=== PATIENT | male | born 1980 | race Caucasian/White ===

== ENCOUNTER 2022-10-13 08:01 | Inpatient (IN) | payer MEDICARE, OTHER, SELFPAY ==
--- NOTE | ~2022-10-13 | CT_ITS ---
EXAMINATION: CT HEAD WITHOUT CONTRAST CLINICAL INFORMATION: AMS. COMPARISON: None TECHNIQUE: Contiguous axial imaging was performed from the skull base to vertex without intravenous administration of contrast. This CT examination was performed using dose optimization techniques as appropriate, variously including the following: *Automated exposure control *Adjustment of mA and/or kV according to patient size (this includes techniques or standardized protocols for targeted exams where dose is matched to indication/reason for exam; i.e. extremities or head) *Use of iterative reconstruction technique DLP: 724 mGy-cm FINDINGS: There is no acute intra-axial, extra-axial bleed, masses or midline shift. There is no acute infarction evolution. The lateral ventricles are symmetrical but moderately enlarged. The pink to white matter differentiation is maintained normal. Incidental finding of a small arachnoid cyst right middle cranial fossa is suspected. Bone windows reveal no calvarial abnormality. There is mild mucoperiosteal thickening bilateral ethmoid and right frontal sinuses. Rest of the sinuses and mastoid air cells are clear. CT/CT head/brain wo IV con IMPRESSION: 1. No acute intracranial process seen. 2. Moderate cerebral volume loss. 3. Chronic bilateral ethmoid and right frontal sinus inflammatory changes.
--- NOTE | ~2022-10-13 | XR_ITS ---
EXAMINATION: XR CHEST CLINICAL INFORMATION: Altered mental status. COMPARISON: None TECHNIQUE: 2 views of the chest were obtained. FINDINGS: No significant abnormality is noted involving the heart, lungs, mediastinum, bony thorax or soft tissues. XR/XR chest 2V IMPRESSION: No acute cardiopulmonary process.
[2022-10-13 08:11] VITALS: BP 116/77; BP 158/86; PULSE 65; PULSE 76; RESP 18; TEMP 37; O2SAT 98; BMI 27.5
--- NOTE | 2022-10-13 08:24 | ECG_ITS ---
Test Reason : Dysphagia Blood Pressure : / mmHG Vent. Rate : 064 BPM Atrial Rate : 064 BPM P-R Int : 158 ms QRS Dur : 080 ms QT Int : 402 ms P-R-T Axes : 006 019 028 degrees QTc Int : 414 ms Normal sinus rhythm Normal ECG No previous ECGs available Referred By: Nancy Henry Electronically Signed By:TERESA AL MD
--- NOTE | 2022-10-13 08:24 | ED.GENADULT ---
HPI - General Adult General Chief complaint: Psychiatric Symptoms Stated complaint: ALTERED,CALM/COOP FOUND @ [facility] PER EMS Time Seen by Provider: 10/13/22 08:14 Source: patient and EMS Mode of arrival: EMS Limitations: no limitations History of Present Illness HPI narrative: Patient is a 42 year old assigned male at with a history of multiple psychiatric issues presenting to the emergency department today with auditory hallucinations. Patient states that he has been hearing more voices than usual. Patient denies any thoughts of hurting himself or others. Patient denies any dizziness, lightheadedness, abdominal pain, nausea, vomiting, fever, chills, blurry vision, double vision, loss of vision, chest pain, difficulty breathing, shortness of breath, back pain, night sweats, pain with urination, increased urinary frequency, increased urinary urgency, blood in his urine or stool, syncope or a near syncopal episode, recent trauma or falls, bowel incontinence, bladder incontinence, bowel retention, bladder retention, or any other complaints at this time. Onset (ago): day(s) Severity: mild Severity scale (1-10): 3 Relieving factors: none Exacerbating factors: none Associated symptoms: denies other symptoms Treatments prior to arrival: none Related Data Allergies Allergy/AdvReac Type Severity Reaction Status Date / Time Unable to Assess Allergy Verified 10/13/22 08:24 Review of Systems Constitutional: Constitutional: Reports no additional constitutional complaints, Denies chills, Denies fever(s) and Denies night sweats Eyes: Eyes: Reports no additional eye complaints, Denies blurry vision, Denies change in vision, Denies diplopia, Denies eye discharge, Denies loss of vision and Denies eye pain ENT: Denies dizziness Cardiovascular: Cardiovascular: Reports no additional cardiovascular complaints, Denies chest pain, Denies lightheadedness, Denies Loss of Consciousness and Denies dyspnea Respiratory: Respiratory: Reports no additional respiratory complaints and Denies dyspnea Gastrointestinal: Gastrointestinal: Reports no additional gastrointestinal complaints, Denies abdominal pain, Denies melena, Denies hematochezia, Denies change in bowel habits and Denies change in stool character Genitourinary: Genitourinary: Reports no additional male genitourinary complaints, Denies hematuria, Denies oliguria, Denies difficulty urinating, Denies dysuria, Denies urinary frequency, Denies urinary hesitancy, Denies urinary incontinence and Denies urinary urgency Musculoskeletal: Musculoskeletal: Reports no additional musculoskeletal complaints, Denies numbness and Denies tingling Neurologic: Denies dizziness, Denies loss of vision, Denies numbness and Denies tingling Psychiatric: Psychiatric: Reports no additional psychiatric complaints, Reports auditory hallucinations, Denies homicidal ideation and Denies suicidal ideation Endocrine: Endocrine: Reports no additional endocrine complaints Hematologic/Lymphatic: Hematologic/Lymphatic: Reports no additional hematologic/lymphatic complaints Allergic/Immunologic: Allergic/Immunologic: Reports no additional allergic/immunologic complaints PMFSH Past Medical History Attestation statement: The following information was validated with the patient. Source: old records reviewed Social History Social History Advance Directives: No Advance Directives Information Provided: No Physical Exam ED Vital Signs: Vital Signs - 24 hr 10/13/22 08:11 10/13/22 10:05 10/13/22 12:19 Temperature 98.6 F 99.1 F 98.5 F Pulse Rate 65 63 72 Respiratory Rate 18 15 12 Blood Pressure 116/77 104/77 104/66 Pulse Oximetry 98 99 100 Oxygen Delivery Method Room Air Room Air Room Air BMI result Body Mass Index 27.5 Const General: cooperative, no acute distress, alert and awake Nutritional Appearance: well nourished Orientation/consciousness: patient oriented x3 Limitations: no limitations HENMT Head: Yes normal to inspection and Yes atraumatic Ears: hearing grossly normal bilaterally and external ears normal General nose exam: Normal external nose present, no nasal discharge noted and no epistaxis Face and sinus: Yes normal facial exam, No abrasion and No laceration Mouth: Normal oral and palatal mucosa present, no drooling and no muffled voice Eyes General: appearance normal, both eyes and all related structures Periorbital: periorbital findings normal Eyelids: Yes eyelids normal Conjunctivae: conjunctivae normal Pupils: Equal, round and reactive pupils present EOM: EOMs intact bilaterally Neck Neck: Yes normal visual inspection, Yes full ROM and Yes no lymphadenopathy Chest Chest palpation & inspection: normal inspection of the chest Resp Effort & Inspection: normal respiratory effort and able to speak in complete sentences Auscultation: clear to auscultation bilaterally Cardio Rate: regular rate Rhythm: regular rhythm GI Inspection: Yes normal to inspection Neuro General: patient oriented x3 and moves all extremities Cranial nerves: Yes Equal, round and reactive pupils present Cognition (Neuro): normal cognition Motor exam (neuro): 5/5 motor strength present throughout Sensory Exam: Normal double simultaneous stimulation for sensation Coordination: [id number] test normal Extrem General: Yes normal to inspection, Yes full ROM and Yes capillary refill normal Psych Appearance: grossly normal Mental Status: mental status grossly normal Affect: normal affect Attitude: cooperative Thought process: Normal thought process present Thought content: delusions Insight: Limited insight present (Psych) Medications Administered Discontinued Medications Generic Name Dose Route Start Last Admin Trade Name Christi PRN Reason Stop Dose Admin Acetaminophen 650 mg 10/13/22 16:46 10/13/22 16:49 Acetaminophen 325 Mg Tablet PO 10/13/22 16:47 650 mg ONCE ONE Administration Medical Decision Making [facility] Narrative Medical decision making narrative: Patient is a 42 year old assigned male at with a history of multiple psychiatric issues presenting to the emergency department today with auditory hallucinations. Patient's physical exam was unremarkable. Patient's blood work was unremarkable. Patient's urine showed no acute process. I explained my physical exam findings as well as all test results to the patient. I answered all questions asked by the patient. Patient was evaluated by the CARE team who recommended admission for psychiatric care. Medical Records Medical records reviewed: Yes I reviewed the patient's medical records. Lab Data Lab results reviewed: Yes I reviewed the patient's lab results. Result diagrams: 10/13/22 09:46 10/13/22 09:46 Labs: Lab Results 10/13/22 10/13/22 10/13/22 Range/Units 09:46 09:46 09:46 WBC 7.7 (4.8-10.8) X10*3/uL RBC 4.53 L (4.60-5.80) X10*6/uL Hgb 13.4 L (14.0-18.0) g/dl Hct 40.4 L (42.0-52.0) % MCV 89.2 (80.0-98.0) fL MCH 29.6 (27.0-33.0) pg MCHC 33.2 (31.0-36.0) g/dl RDW 13.2 (11.0-16.0) % Plt Count 238 (160-400) X10*3/uL MPV 10.7 (9.4-12.4) fL Immature Gran % (Auto) 0.3 (0.0-0.4) % Neut % (Auto) 68.8 (45-73) % Lymph % (Auto) 21.3 (20-40) % Haralson % (Auto) 7.4 (2-11) % Eos % (Auto) 1.7 (0-4) % Baso % (Auto) 0.5 (0-2) % Lymph # (Auto) 1.6 (1.2-4.9) X10*3/uL Haralson # (Auto) 0.6 (0.1-1.2) X10*3/uL Eos # (Auto) 0.1 (0.0-0.4) X10*3/uL Baso # (Auto) 0.0 (0.0-0.2) X10*3/uL Abs Immat Gran (auto) 0.02 (0.00-0.03) X10*3/uL Absolute Neuts (auto) 5.3 (2.0-8.3) x10*3/uL Absolute Nucleated RBC 0.000 (0.0-0.012) X10*3/uL Nucleated RBC % (auto) 0.0 (0.0-0.2) /100WBC Sodium 140 (135-145) mmol/L Potassium 4.5 (3.3-5.1) mmol/L Chloride 104 (96-108) mmol/L Carbon Dioxide 26 (22-29) mmol/L Anion Gap 15 (12-20) BUN 14 (9-16) mg/dL Creatinine 0.73 (0.5-1.4) mg/dL Estim Creat Clear Calc 146.1 Estimated GFR > 60 Random Glucose 86 (60-115) mg/dL Calcium 9.8 (8.4-10.2) mg/dL Magnesium 2.0 (1.6-2.6) mg/dL Total Bilirubin 1.4 H (0.0-1.0) mg/dL AST 18 (5-37) U/L ALT 13 (0-40) U/L Alkaline Phosphatase 99 (39-117) U/L Ammonia 29 (13-55) umol/L Total Protein 7.3 (6.5-8.0) g/dL Albumin 4.5 (3.5-5.0) g/dL Urine Opiates Screen (Not Detect) Urine Fentanyl Screen (Not Detect) Ur Barbiturates Screen (Not Detect) Ur Phencyclidine Scrn (Not Detect) Ur Amphetamines Screen (Not Detect) U Benzodiazepines Scrn (Not Detect) Urine Cocaine Screen (Not Detect) U Marijuana (THC) Screen (Not Detect) Ethyl Alcohol < 10 mg/dL COVID-19 (FÁTIMA) (Negative) COVID-19 Clin Com 10/13/22 10/13/22 Range/Units 13:32 13:58 WBC (4.8-10.8) X10*3/uL RBC (4.60-5.80) X10*6/uL Hgb (14.0-18.0) g/dl Hct (42.0-52.0) % MCV (80.0-98.0) fL MCH (27.0-33.0) pg MCHC (31.0-36.0) g/dl RDW (11.0-16.0) % Plt Count (160-400) X10*3/uL MPV (9.4-12.4) fL Immature Gran % (Auto) (0.0-0.4) % Neut % (Auto) (45-73) % Lymph % (Auto) (20-40) % Haralson % (Auto) (2-11) % Eos % (Auto) (0-4) % Baso % (Auto) (0-2) % Lymph # (Auto) (1.2-4.9) X10*3/uL Haralson # (Auto) (0.1-1.2) X10*3/uL Eos # (Auto) (0.0-0.4) X10*3/uL Baso # (Auto) (0.0-0.2) X10*3/uL Abs Immat Gran (auto) (0.00-0.03) X10*3/uL Absolute Neuts (auto) (2.0-8.3) x10*3/uL Absolute Nucleated RBC (0.0-0.012) X10*3/uL Nucleated RBC % (auto) (0.0-0.2) /100WBC Sodium (135-145) mmol/L Potassium (3.3-5.1) mmol/L Chloride (96-108) mmol/L Carbon Dioxide (22-29) mmol/L Anion Gap (12-20) BUN (9-16) mg/dL Creatinine (0.5-1.4) mg/dL Estim Creat Clear Calc Estimated GFR Random Glucose (60-115) mg/dL Calcium (8.4-10.2) mg/dL Magnesium (1.6-2.6) mg/dL Total Bilirubin (0.0-1.0) mg/dL AST (5-37) U/L ALT (0-40) U/L Alkaline Phosphatase (39-117) U/L Ammonia (13-55) umol/L Total Protein (6.5-8.0) g/dL Albumin (3.5-5.0) g/dL Urine Opiates Screen Not Detected (Not Detect) Urine Fentanyl Screen Not Detected (Not Detect) Ur Barbiturates Screen Not Detected (Not Detect) Ur Phencyclidine Scrn Not Detected (Not Detect) Ur Amphetamines Screen Not Detected (Not Detect) U Benzodiazepines Scrn Not Detected (Not Detect) Urine Cocaine Screen Not Detected (Not Detect) U Marijuana (THC) Screen Not Detected (Not Detect) Ethyl Alcohol mg/dL COVID-19 (FÁTIMA) Negative (Negative) COVID-19 Clin Com See Note ECG Data Attestation: I personally reviewed and interpreted this ECG as follows: Prior ECG tracings: not available for review Interpretation: Vent. Rate: 064 BPM ? ? Atrial Rate: 064 BPM P-R Int: 158 ms? QRS Dur: 080 ms QT Int: 402 ms ? ? ? P-R-T Axes: 006 019 028 degrees QTc Int: 414 ms ? Normal sinus rhythm Normal ECG No previous ECGs available ? Electronically Signed By:TERESA AL MD Dictated By: Aries Al MD Signed By: Electronically signed by Aries Al MD 10/13/22 105 Discharge Plan Discharge Clinical Impression: Acute psychosis Patient Disposition: Still a Patient
--- NOTE | 2022-10-13 08:54 | PC.NURSE ---
Addendum entered by Cathy Heredia 10/13/22 08:58: PT calm and cooperative. Original Note: PT unable to recall events states I don't remember . PT alert to self and year. Reports hearing voices that are telling him the world is going to end . Denies SI/HI. Reports pain to his feet, and a sore throat.
[2022-10-13 09:50] LABS: MANUAL DIFF FLAG NO
[2022-10-13 09:53] LABS: Basophils Percent Auto 0.5 % (0-2); Eosinophils Absolute Auto 0.1 X10*3/uL (0.0-0.4); Eosinophils Percent Auto 1.7 % (0-4); Hematocrit 40.4 % (42.0-52.0); Hemoglobin 13.4 g/dl (14.0-18.0); Imm Gran Abs Auto 0.02 X10*3/uL (0.00-0.03); Imm Gran Pct Auto 0.3 % (0.0-0.4); Lymphocytes Absolute Auto 1.6 X10*3/uL (1.2-4.9); Lymphocytes Percent Auto 21.3 % (20-40); Mean Corpuscular HGB Conc 33.2 g/dl (31.0-36.0); Mean Corpuscular Hemoglobin 29.6 pg (27.0-33.0); Mean Corpuscular Volume 89.2 fL (80.0-98.0); Mean Platelet Volume 10.7 fL (9.4-12.4); Monocytes Absolute Auto 0.6 X10*3/uL (0.1-1.2); Monocytes Percent Auto 7.4 % (2-11); Neutrophils Absolute Auto 5.3 x10*3/uL (2.0-8.3); Neutrophils Percent Auto 68.8 % (45-73); Platelet Count 238 X10*3/uL (160-400); Red Blood Count 4.53 X10*6/uL (4.60-5.80); Red Cell Distribution Width 13.2 % (11.0-16.0); White Blood Count 7.7 X10*3/uL (4.8-10.8)
[2022-10-13 10:04] LABS: Ammonia 29 umol/L (13-55)
[2022-10-13 10:05] VITALS: BP 104/77; PULSE 63; RESP 15; TEMP 37.3; O2SAT 99
[2022-10-13 10:23] LABS: Alanine Aminotransferase 13 U/L (0-40); Albumin Level 4.5 g/dL (3.5-5.0); Alkaline Phosphatase 99 U/L (39-117); Anion Gap 15 (12-20); Aspartate Amino Transferase 18 U/L (5-37); Bilirubin Total 1.4 mg/dL (0.0-1.0); Blood Urea Nitrogen 14 mg/dL (9-16); Calcium 9.8 mg/dL (8.4-10.2); Carbon Dioxide 26 mmol/L (22-29); Chloride 104 mmol/L (96-108); Creatinine Clr Calc Pharmacy 146.1; Estimated Glomerular Filt Rate > 60; Ethanol < 10 mg/dL; Glucose Random 86 mg/dL (60-115); Potassium 4.5 mmol/L (3.3-5.1); Sodium 140 mmol/L (135-145); Total Protein 7.3 g/dL (6.5-8.0)
[2022-10-13 12:19] VITALS: BP 104/66; PULSE 72; RESP 12; TEMP 36.9; O2SAT 100
[2022-10-13 14:11] LABS: COVID-19 Test Negative (Negative); IDNOW Serial# 55D5AD1C
[2022-10-13 14:38] LABS: Amphetamine Screen Urine Not Detected (Not Detect); Barbiturates, Urine Not Detected (Not Detect); Benzodiazepines Screen Urine Not Detected (Not Detect); Cannabinoid Screen Urine Not Detected (Not Detect); Cocaine Screen Urine Not Detected (Not Detect); Fentanyl, urine Not Detected (Not Detect); Opiate Screen Urine Not Detected (Not Detect); Phencyclidine Screen Urine Not Detected (Not Detect)
--- NOTE | 2022-10-13 14:57 | PHA.MEDREC ---
Pharmacy Consult ? Medication Reconciliation Pharmacy has completed the medication reconciliation. Patient has no claim history and states he takes no medications.
[2022-10-13] MEDS: Acetaminophen 325 MG TABLET 650 MG PO (16:49)
--- NOTE | 2022-10-13 19:06 | PC.NURSE ---
Addendum entered by Valeria Pope RN 10/13/22 20:18: pt is alert and oriented resting in bed no signs of acute distress notice breathing equally unlabored close monitoring maintained Original Note: report received from ANTONIA Fay
[2022-10-13 19:48] VITALS: BP 122/84; PULSE 73; RESP 18; TEMP 36.4; O2SAT 97
[2022-10-13 22:49] VITALS: BMI 23.9
[2022-10-13 22:50] VITALS: BP 119/78; PULSE 83; TEMP 36.5; O2SAT 100
--- NOTE | 2022-10-14 04:04 | PC.NURSE ---
admission note for 10/13/22-patient was a referral from the [facility] emergency department. nurse to nurse, collateral information obtained prior to admission. legal CV. dx: psychotic d/o. patient was cooperative to admission process but often stated ''I don't remember'' identified that he came to the ER because he was ''homeless'' reports he receives SSDI and reports that with the use of his phone he checks his account and also checks to see ''the waiting list for government housing'' in [place]. during assessment he acknowledges + AH ''they say the end of the world is coming'' when asked how he felt about what he was hearing stated ''I'm indifferent'' endorsed VH and stated ''they are pictures in my head'' appeared to be grimacing during interview and when questioned denied pain and stated ''my mind and body connection is off'' denies SI/HI and no reports of these thoughts in the CARE team assessment. ANDREA negative. denies any physical issues but gait is off. no history of falls. when feet evaluated it is noted that both feet are dry, calloused and areas of cracking skin between his toes on both feet. L foot with split between his large toe and second toe. R foot 2nd toe bruising with ripped toe nail on 2nd toe. it is reported from the CARE team the possibility of patient having walked to [place] from [place]. he was able to identify being hospitalized previously at [facility] in [place] and [place] in [place]. No medications were prescribed at discharge from recent [facility] hospitalization per hospital dc paperwork from that facility. pt was encouraged to f/u with services at [facility]. patient denied having a PCP during interview but paperwork from [facility] shows a PCP Julissa Castillo MD [address] [place] [id number] . patient denied any legal issues but found in belongings was a no tresspass order from [facility] signed on 10/10/22 and also a pre trial conference or hearing notification from [place] district court for January 05 2023. patient reports that the court date is related to a second episode at [facility]. ''I wanted to be treated for my mental illness but they would not let me in'' when asked how he envisioned his treatment without the use of medication stated ''I need a safe place to stay because I lose my memory a lot'' (copy in chart under legals) reported HX of taking medications and stated ''nothing ever helped with the voices'' did not engage was to what medications he had used in the past. reports graduating from [employer] in [employer] science. oriented to unit. treatment plan and safety tool completed.
[2022-10-14 10:18] VITALS: BP 118/78; PULSE 68; RESP 17; TEMP 36.8; O2SAT 100
[2022-10-14 10:24] LABS: Cholesterol 95 mg/dL; HDL Cholesterol 29 mg/dL; LDL Cholesterol Calculated 56 mg/dl; Magnesium 2.1 mg/dL (1.6-2.6); Triglycerides 51 mg/dL
[2022-10-14 10:47] LABS: Thyroid Stimulating Hormone 0.56 uIU/mL (0.32-4.0)
[2022-10-14 11:37] LABS: Folate 7.2 ng/mL (> or = 4.0); Vitamin B12 222 pg/mL (200-900)
--- NOTE | 2022-10-14 16:07 | P.HPPS_ITS ---
HPI Date of Service: 10/14/22 Chief Complaint: AH Sources of Information: patient interviewed, chart reviewed and crisis/core team assessment reviewed HPI Subjective Notes: Cox Warning (given and shows understanding) and Conditional Voluntary Narrative: Mr. Wan is a 42 year-old male with unclear psychiatric hx but appears to have hx of schizophrenia. Pt was found wondering on the streets and bystander called 911. According to crisis report, pt reported having memory problems and hearing voices telling him that the world is ending. Utox was negative. Pt recently discharged from [facility] after brief admission for psychosis, however, pt had refused medications. On the unit, pt reports he is originally from [place]. Pt reports having memory problems. He reports not remembering things about his childhood. He also reports getting lost easily and not finding his way. He reports difficulty remembering information. He states he has no family. 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 He states he can't remember how long it has been since he last worked. He reports he has no friends or anyone who can provide further information about his history. Pt reports he will not take psychotropic medications because they are drugs, not good for you. Pt states he will consider taking medication for medical reasons but also states that some medical conditions are not real. Pt states I just need help finding new jail. He reports he has been on wait list for housing in [place] for the past 10 years. He states he has communicated with someone from [place] to obtain updates on housing status. He reports he hopes to return to [place]. He is not sure as to why he came to [place]. He denies VH. He denies SI/HI. He states I would never hurt anyone! Past Psychiatric History: Inpatient: [facility] OP: none Medical Evaluation Reviewed: Yes [facility] Family History: denies Social History: Pt reports he was born in [place]. He states I have no family. He denies having children or being . He reports having degree in engineering. He reports not working for a long time. currently homeless. Unclear if he has stable source of income. Substance History: denies Trauma History: denies Diagnostics Vital Signs (24Hr): Vital Signs - 24 hr 10/13/22 19:48 10/13/22 22:50 10/14/22 10:18 Temperature 97.6 F 97.7 F 98.3 F Pulse Rate 73 83 68 Respiratory Rate 18 17 Blood Pressure 122/84 119/78 118/78 Pulse Oximetry 97 100 100 Oxygen Delivery Method Room Air Room Air BMI result Body Mass Index 23.9 Labs Results: 10/13/22 09:46 10/13/22 09:46 Labs: Laboratory Results - last 48 hr 10/13/22 10/13/22 10/13/22 09:46 09:46 09:46 WBC 7.7 RBC 4.53 L Hgb 13.4 L Hct 40.4 L MCV 89.2 MCH 29.6 MCHC 33.2 RDW 13.2 Plt Count 238 MPV 10.7 Immature Gran % (Auto) 0.3 Neut % (Auto) 68.8 Lymph % (Auto) 21.3 [place] % (Auto) 7.4 Eos % (Auto) 1.7 Baso % (Auto) 0.5 Lymph # (Auto) 1.6 [place] # (Auto) 0.6 Eos # (Auto) 0.1 Baso # (Auto) 0.0 Abs Immat Gran (auto) 0.02 Absolute Neuts (auto) 5.3 Absolute Nucleated RBC 0.000 Nucleated RBC % (auto) 0.0 Sodium 140 Potassium 4.5 Chloride 104 Carbon Dioxide 26 Anion Gap 15 BUN 14 Creatinine 0.73 Estim Creat Clear Calc 146.1 Estimated GFR > 60 Random Glucose 86 Calcium 9.8 Magnesium 2.0 Total Bilirubin 1.4 H AST 18 ALT 13 Alkaline Phosphatase 99 Ammonia 29 Total Protein 7.3 Albumin 4.5 Triglycerides Cholesterol LDL Cholesterol, Calc HDL Cholesterol Vitamin B12 Folate TSH Free T4 Urine Opiates Screen Urine Fentanyl Screen Ur Barbiturates Screen Ur Phencyclidine Scrn Ur Amphetamines Screen U Benzodiazepines Scrn Urine Cocaine Screen U Marijuana (THC) Screen Ethyl Alcohol < 10 COVID-19 (FÁTIMA) COVID-19 Clin Com 10/13/22 10/13/22 10/14/22 13:32 13:58 08:53 WBC RBC Hgb Hct MCV MCH MCHC RDW Plt Count MPV Immature Gran % (Auto) Neut % (Auto) Lymph % (Auto) [place] % (Auto) Eos % (Auto) Baso % (Auto) Lymph # (Auto) [place] # (Auto) Eos # (Auto) Baso # (Auto) Abs Immat Gran (auto) Absolute Neuts (auto) Absolute Nucleated RBC Nucleated RBC % (auto) Sodium Potassium Chloride Carbon Dioxide Anion Gap BUN Creatinine Estim Creat Clear Calc Estimated GFR Random Glucose Calcium Magnesium 2.1 Total Bilirubin AST ALT Alkaline Phosphatase Ammonia Total Protein Albumin Triglycerides 51 Cholesterol 95 LDL Cholesterol, Calc 56 HDL Cholesterol 29 Vitamin B12 Folate TSH 0.56 Free T4 1.00 Urine Opiates Screen Not Detected Urine Fentanyl Screen Not Detected Ur Barbiturates Screen Not Detected Ur Phencyclidine Scrn Not Detected Ur Amphetamines Screen Not Detected U Benzodiazepines Scrn Not Detected Urine Cocaine Screen Not Detected U Marijuana (THC) Screen Not Detected Ethyl Alcohol COVID-19 (FÁTMIA) Negative COVID-19 Clin Com See Note 10/14/22 08:53 WBC RBC Hgb Hct MCV MCH MCHC RDW Plt Count MPV Immature Gran % (Auto) Neut % (Auto) Lymph % (Auto) [place] % (Auto) Eos % (Auto) Baso % (Auto) Lymph # (Auto) [place] # (Auto) Eos # (Auto) Baso # (Auto) Abs Immat Gran (auto) Absolute Neuts (auto) Absolute Nucleated RBC Nucleated RBC % (auto) Sodium Potassium Chloride Carbon Dioxide Anion Gap BUN Creatinine Estim Creat Clear Calc Estimated GFR Random Glucose Calcium Magnesium Total Bilirubin AST ALT Alkaline Phosphatase Ammonia Total Protein Albumin Triglycerides Cholesterol LDL Cholesterol, Calc HDL Cholesterol Vitamin B12 222 Folate 7.2 TSH Free T4 Urine Opiates Screen Urine Fentanyl Screen Ur Barbiturates Screen Ur Phencyclidine Scrn Ur Amphetamines Screen U Benzodiazepines Scrn Urine Cocaine Screen U Marijuana (THC) Screen Ethyl Alcohol COVID-19 (FÁTIMA) COVID-19 Clin Com Imaging Radiology Impressions: ITS Impressions Chest X-Ray 10/13/22 10:25 IMPRESSION: No acute cardiopulmonary process. Head CT 10/13/22 10:48 IMPRESSION: 1. No acute intracranial process seen. 2. Moderate cerebral volume loss. 3. Chronic bilateral ethmoid and right frontal sinus inflammatory changes. Meds/Allergies Allergies Allergies Allergy/AdvReac Type Severity Reaction Status Date / Time Unable to Assess Allergy Verified 10/13/22 08:24 Mental Status Exam Mental Status Exam Narrative: Appearance: casually groomed, fair hygiene, in NAD Behavior: guarded, suspicious Speech: clear, delayed response, minimally spontaneous TP: thought blocking TC: suspicious about medications, people, worried about his memory AH: telling him that the world is going to end VH: denies Delusions: suspiciousness, no over paranoid reports other than not trusting medications nor believing in medical conditions, but suspect underlying paranoia Insight/judgment: poor x 2. Memory/cog: alert, oriented to place, not situation, reports memory problems, may do MOCA. Assessment & Plan Assessment & Plan (1) Schizophrenia: Status: Acute Code(s): F20.9 - Schizophrenia, unspecified Plan Mr Wan is a 42 year-old male with what appears to be hx of schizophrenia. Pt brought in by police to [facility] after e was found wondering and reporting hearing voices telling him that world is ending. Pt reports he is distressed by voices, which he reports affect his ability to work. At the same time, he states he will not take any psychotropic medication as he thinks these medications are harmful. He request a jail. He also reports problems with memory including difficulty retaining information getting lost, not remembering aspects of his past. He agrees to have MOCA done. PLAN 1. Admit to M3, CV, 15 minutes checks for safety. 2. Obtain collateral information 3. Aftercare planning. Patient educated on: diagnosis and medication risk/benefits Reason for continued inpatient stay Substantial Risk for: inability to function
[2022-10-14 18:00] VITALS: BP 133/81; PULSE 88; RESP 16; TEMP 36.4; O2SAT 100
[2022-10-15 09:18] VITALS: BP 134/87; PULSE 88; RESP 18; TEMP 36.8; O2SAT 98
--- NOTE | 2022-10-15 11:25 | HO.PSYCHPN ---
Subjective Subjective Date of Service: 10/15/22 Reason For Visit: AH Subjective Notes: Conditional Voluntary Interim History: Pt laughing to self throughout this interview. He reports he continues hearing voices telling him that the world is going to end. Pt reports he thinks he is being posed. He then asked this telegraphic typewriter repairer if I am sure that I am not posed. Pt suspicious, but finally did agree to take risperidone. He denies SI/HI. He reports he needs senior living and this being main reason for this admission. Review of Systems Review of Systems Yes all other systems are reviewed and are negative Constitutional: Reports no additional constitutional complaints, Denies chills, Denies difficulty sleeping, Denies fever(s), Denies headache(s), Denies night sweats and Denies poor appetite Eyes: Reports no additional eye complaints, Denies blurry vision, Denies change in vision, Denies diplopia, Denies eye discharge, Denies loss of vision and Denies eye pain Denies dizziness and Denies headache(s) Cardiovascular: Reports no additional cardiovascular complaints, Denies chest pain, Denies lightheadedness, Denies Loss of Consciousness and Denies dyspnea Respiratory: Reports no additional respiratory complaints and Denies dyspnea Gastrointestinal: Reports no additional gastrointestinal complaints, Denies abdominal pain, Denies melena, Denies hematochezia, Denies change in bowel habits and Denies change in stool character Genitourinary: Reports no additional male genitourinary complaints, Denies hematuria, Denies oliguria, Denies difficulty urinating, Denies dysuria, Denies urinary frequency, Denies urinary hesitancy, Denies urinary incontinence and Denies urinary urgency Musculoskeletal: Reports no additional musculoskeletal complaints, Denies numbness and Denies tingling Denies dizziness, Denies headache(s), Denies loss of vision, Denies numbness and Denies tingling Psychiatric: Reports no additional psychiatric complaints, Reports auditory hallucinations, Denies homicidal ideation and Denies suicidal ideation Endocrine: Reports no additional endocrine complaints Hematologic/Lymphatic: Reports no additional hematologic/lymphatic complaints Allergic/Immunologic: Reports no additional allergic/immunologic complaints Mental Status Exam Mental Status Exam Narrative: Appearance: casually groomed, fair hygiene, in NAD Behavior: guarded, suspicious Speech: clear, delayed response, minimally spontaneous TP: thought blocking TC: suspicious about medications, people, worried about his memory AH: telling him that the world is going to end VH: denies Delusions: suspiciousness, no over paranoid reports other than not trusting medications nor believing in medical conditions, but suspect underlying paranoia Insight/judgment: poor x 2. Memory/cog: alert, oriented to place, not situation, reports memory problems, may do MOCA. Diagnostics Vital Signs (24Hr): Vital Signs - 24 hr 10/15/22 09:18 10/15/22 21:09 Temperature 98.3 F 97.8 F Pulse Rate 88 80 Respiratory Rate 18 18 Blood Pressure 134/87 130/80 Pulse Oximetry 98 98 Oxygen Delivery Method Room Air Room Air BMI result Body Mass Index 23.9 Labs Results: 10/13/22 09:46 10/13/22 09:46 Labs: Laboratory Results - last 48 hr 10/14/22 10/14/22 08:53 08:53 Magnesium 2.1 Triglycerides 51 Cholesterol 95 LDL Cholesterol, Calc 56 HDL Cholesterol 29 Vitamin B12 222 Folate 7.2 TSH 0.56 Free T4 1.00 Imaging Radiology Impressions: ITS Impressions Chest X-Ray 10/13/22 10:25 IMPRESSION: No acute cardiopulmonary process. Head CT 10/13/22 10:48 IMPRESSION: 1. No acute intracranial process seen. 2. Moderate cerebral volume loss. 3. Chronic bilateral ethmoid and right frontal sinus inflammatory changes. Medications Medications Current Medications Acetaminophen (Acetaminophen 325 Mg Tablet) 650 mg PO Q6H PRN PRN Reason: Headache/Pain Mild Scale (1-3) Last Admin: 10/16/22 05:31 Dose: 650 mg Al Hydroxide/Mg Hydroxide (Magnesium Hydrox/Alum Hydrox 30 Ml Oral.Susp) 30 ml PO Q6H PRN PRN Reason: Heartburn/Nausea Hydroxyzine HCl (Hydroxyzine Hcl 25 Mg Tablet) 25 mg PO Q6H PRN PRN Reason: Anxiety Magnesium Hydroxide (Milk Of Magnesia 30 Ml Oral.Susp) 30 ml PO DAILY PRN PRN Reason: Constipation Risperidone (Risperidone 1 Mg Tablet) 1 mg PO BID [facility] Last Admin: 10/15/22 21:10 Dose: 1 mg Trazodone HCl (Trazodone Hcl 50 Mg Tablet) 50 mg PO BEDTIME PRN PRN Reason: Insomnia Allergies Allergies Allergy/AdvReac Type Severity Reaction Status Date / Time Unable to Assess Allergy Verified 10/13/22 08:24 Assessment & Plan Assessment & Plan (1) Schizophrenia: Status: Acute Code(s): F20.9 - Schizophrenia, unspecified Plan Mr Wan is a 42 year-old male with what appears to be hx of schizophrenia. Pt brought in by police to [facility] after e was found wondering and reporting hearing voices telling him that world is ending. Pt reports he is distressed by voices, which he reports affect his ability to work. At the same time, he states he will not take any psychotropic medication as he thinks these medications are harmful. He request a senior living. He also reports problems with memory including difficulty retaining information getting lost, not remembering aspects of his past. He agrees to have MOCA done. PLAN 1. Admit to M3, CV, 15 minutes checks for safety. 2. Obtain collateral information 3. Aftercare planning. 10/15- start risperidone 1mg po BID. I spent minutes with the patient and/or on the patient floor today, greater than?50% of which was spent counseling/coordinating care. Reason for contiued inpatient stay Substantial Risk for: inability to function
[2022-10-15 21:09] VITALS: BP 130/80; PULSE 80; RESP 18; TEMP 36.6; O2SAT 98
[2022-10-15] MEDS: risperiDONE 1 MG TABLET PO (21:10)
[2022-10-16] MEDS: Acetaminophen 325 MG TABLET 650 MG PO (05:31)
[2022-10-16 08:00] VITALS: BP 114/75; PULSE 83; TEMP 36.3; O2SAT 97
[2022-10-16] MEDS: risperiDONE 1 MG TABLET PO ×2 (09:37→21:21)
--- NOTE | 2022-10-16 10:27 | P.PNPSI_ITS ---
Subjective Subjective Date of Service: 10/16/22 Reason For Visit: Subjective Notes: Conditional Voluntary Interim History: Pt in bed, continues at times laughing inappropriately as if responding to internal stimuli. He reports today this play writer does not appeared possessed. He continues to report hearing voices telling that the world will end. Pt denies SI/HI. He reports he does not remember much about his family, moca showed impairments in recall but orientation, executive function, attention, language intact. He is able to remember day to day conversations with this play writer to explain for this amnestic episodes such as not remembering [place] or who his parents are- as pt claims. Medication Compliance: Yes Review of Systems Review of Systems Yes all other systems are reviewed and are negative Constitutional: Reports no additional constitutional complaints, Denies chills, Denies difficulty sleeping, Denies fever(s), Denies headache(s), Denies night sweats and Denies poor appetite Eyes: Reports no additional eye complaints, Denies blurry vision, Denies change in vision, Denies diplopia, Denies eye discharge, Denies loss of vision and Denies eye pain Denies dizziness and Denies headache(s) Cardiovascular: Reports no additional cardiovascular complaints, Denies chest pain, Denies lightheadedness, Denies Loss of Consciousness and Denies dyspnea Respiratory: Reports no additional respiratory complaints and Denies dyspnea Gastrointestinal: Reports no additional gastrointestinal complaints, Denies abdominal pain, Denies melena, Denies hematochezia, Denies change in bowel habits and Denies change in stool character Genitourinary: Reports no additional male genitourinary complaints, Denies h ematuria, Denies oliguria, Denies difficulty urinating, Denies dysuria, Denies urinary frequency, Denies urinary hesitancy, Denies urinary incontinence and Denies urinary urgency Musculoskeletal: Reports no additional musculoskeletal complaints, Denies numbness and Denies tingling Denies dizziness, Denies headache(s), Denies loss of vision, Denies numbness and Denies tingling Psychiatric: Reports no additional psychiatric complaints, Reports auditory hallucinations, Denies homicidal ideation and Denies suicidal ideation Endocrine: Reports no additional endocrine complaints Hematologic/Lymphatic: Reports no additional hematologic/lymphatic complaints Allergic/Immunologic: Reports no additional allergic/immunologic complaints Mental Status Exam Mental Status Exam Narrative: Appearance: casually groomed, fair hygiene, in NAD Behavior: guarded, suspicious Speech: clear, delayed response, minimally spontaneous TP: thought blocking TC: suspicious about medications, people, worried about his memory AH: telling him that the world is going to end VH: denies Delusions: suspiciousness, no over paranoid reports other than not trusting medications nor believing in medical conditions, but suspect underlying paranoia Insight/judgment: poor x 2. Memory/cog: alert, oriented to place, not situation, reports memory problems, may do MOCA. Diagnostics Vital Signs (24Hr): Vital Signs - 24 hr 10/17/22 09:30 10/17/22 18:00 Temperature 98.1 F 98.2 F Pulse Rate 101 H 68 Blood Pressure 144/80 H 128/72 Pulse Oximetry 98 98 Oxygen Delivery Method Room Air Room Air BMI result Body Mass Index 23.9 Labs Results: 10/13/22 09:46 10/13/22 09:46 Imaging Radiology Impressions: ITS Impressions Chest X-Ray 10/13/22 10:25 IMPRESSION: No acute cardiopulmonary process. Head CT 10/13/22 10:48 IMPRESSION: 1. No acute intracranial process seen. 2. Moderate cerebral volume loss. 3. Chronic bilateral ethmoid and right frontal sinus inflammatory changes. Medications Medications Current Medications Acetaminophen (Acetaminophen 325 Mg Tablet) 650 mg PO Q6H PRN PRN Reason: Headache/Pain Mild Scale (1-3) Last Admin: 10/16/22 05:31 Dose: 650 mg Al Hydroxide/Mg Hydroxide (Magnesium Hydrox/Alum Hydrox 30 Ml Oral.Susp) 30 ml PO Q6H PRN PRN Reason: Heartburn/Nausea Fluticasone Propionate (Fluticasone Propionate Nasal 16 Gm [place]) 1 spray NOSTRIL-B BID [facility] Last Admin: 10/18/22 00:30 Dose: Not Given Hydroxyzine HCl (Hydroxyzine Hcl 25 Mg Tablet) 25 mg PO Q6H PRN PRN Reason: Anxiety Magnesium Hydroxide (Milk Of Magnesia 30 Ml Oral.Susp) 30 ml PO DAILY PRN PRN Reason: Constipation Risperidone (Risperidone 1 Mg Tablet) 1 mg PO BID [facility] Last Admin: 10/17/22 22:03 Dose: 1 mg Trazodone HCl (Trazodone Hcl 50 Mg Tablet) 50 mg PO BEDTIME PRN PRN Reason: Insomnia Allergies Allergies Allergy/AdvReac Type Severity Reaction Status Date / Time Unable to Assess Allergy Verified 10/13/22 08:24 Assessment & Plan Assessment & Plan (1) Schizophrenia: Status: Acute Code(s): F20.9 - Schizophrenia, unspecified Plan Mr Wan is a 42 year-old male with what appears to be hx of schizophrenia. Pt brought in by police to [facility] after e was found wondering and reporting hearing voices telling him that world is ending. Pt reports he is distressed by voices, which he reports affect his ability to work. At the same time, he states he will not take any psychotropic medication as he thinks these medications are harmful. He request a senior care. He also reports problems with memory including difficulty retaining information getting lost, not remembering aspects of his past. He agrees to have MOCA done. PLAN 1. Admit to M3, CV, 15 minutes checks for safety. 2. Obtain collateral information 3. Aftercare planning. 10/15- start risperidone 1mg po BID. 10/16 continue treatment I spent minutes with the patient and/or on the patient floor today, greater than?50% of which was spent counseling/coordinating care. Reason for contiued inpatient stay Substantial Risk for: inability to function
[2022-10-16 21:18] VITALS: BP 141/81; PULSE 93; RESP 16; TEMP 36.6; O2SAT 100
[2022-10-17 09:30] VITALS: BP 144/80; PULSE 101; TEMP 36.7; O2SAT 98
[2022-10-17] MEDS: risperiDONE 1 MG TABLET PO ×2 (10:19→22:03)
--- NOTE | 2022-10-17 11:32 | HO.PSYCHPN ---
Subjective Subjective Date of Service: 10/17/22 Reason For Visit: AH Subjective Notes: Conditional Voluntary Interim History: Pt in bed, reports feeling congested, sinus tenderness, no fever. Some cough but not often. Pt continues to report hearing voices, telling him the end of world is coming. Pt at times continues to laugh in response to internal stimuli which suspect is hallucinations are more complex than what he reports. He denies SI/HI. he agrees to increase risperidone. Medication Compliance: Yes Review of Systems Review of Systems Yes all other systems are reviewed and are negative Constitutional: Reports no additional constitutional complaints, Denies chills, Denies difficulty sleeping, Denies fever(s), Denies headache(s), Denies night sweats and Denies poor appetite Eyes: Reports no additional eye complaints, Denies blurry vision, Denies change in vision, Denies diplopia, Denies eye discharge, Denies loss of vision and Denies eye pain Denies dizziness and Denies headache(s) Cardiovascular: Reports no additional cardiovascular complaints, Denies chest pain, Denies lightheadedness, Denies Loss of Consciousness and Denies dyspnea Respiratory: Reports no additional respiratory complaints and Denies dyspnea Gastrointestinal: Reports no additional gastrointestinal complaints, Denies abdominal pain, Denies melena, Denies hematochezia, Denies change in bowel habits and Denies change in stool character Genitourinary: Reports no additional male genitourinary complaints, Denies hematuria, Denies oliguria, Denies difficulty urinating, Denies dysuria, Denies urinary frequency, Denies urinary hesitancy, Denies urinary incontinence and Denies urinary urgency Musculoskeletal: Reports no additional musculoskeletal complaints, Denies numbness and Denies tingling Denies dizziness, Denies headache(s), Denies loss of vision, Denies numbness and Denies tingling Psychiatric: Reports no additional psychiatric complaints, Reports auditory hallucinations, Denies homicidal ideation and Denies suicidal ideation Endocrine: Reports no additional endocrine complaints Hematologic/Lymphatic: Reports no additional hematologic/lymphatic complaints Allergic/Immunologic: Reports no additional allergic/immunologic complaints Mental Status Exam Mental Status Exam Narrative: Appearance: casually groomed, fair hygiene, in NAD Behavior: guarded, suspicious Speech: clear, delayed response, minimally spontaneous TP: thought blocking TC: suspicious about medications, people, worried about his memory AH: telling him that the world is going to end VH: denies Delusions: suspiciousness, no over paranoid reports other than not trusting medications nor believing in medical conditions, but suspect underlying paranoia Insight/judgment: poor x 2. Memory/cog: alert, oriented to place, not situation, reports memory problems, may do MOCA. Diagnostics Vital Signs (24Hr): Vital Signs - 24 hr 10/17/22 09:30 10/17/22 18:00 Temperature 98.1 F 98.2 F Pulse Rate 101 H 68 Blood Pressure 144/80 H 128/72 Pulse Oximetry 98 98 Oxygen Delivery Method Room Air Room Air BMI result Body Mass Index 23.9 Labs Results: 10/13/22 09:46 10/13/22 09:46 Imaging Radiology Impressions: ITS Impressions Chest X-Ray 10/13/22 10:25 IMPRESSION: No acute cardiopulmonary process. Head CT 10/13/22 10:48 IMPRESSION: 1. No acute intracranial process seen. 2. Moderate cerebral volume loss. 3. Chronic bilateral ethmoid and right frontal sinus inflammatory changes. Medications Medications Current Medications Acetaminophen (Acetaminophen 325 Mg Tablet) 650 mg PO Q6H PRN PRN Reason: Headache/Pain Mild Scale (1-3) Last Admin: 10/16/22 05:31 Dose: 650 mg Al Hydroxide/Mg Hydroxide (Magnesium Hydrox/Alum Hydrox 30 Ml Oral.Susp) 30 ml PO Q6H PRN PRN Reason: Heartburn/Nausea Fluticasone Propionate (Fluticasone Propionate Nasal 16 Gm [place]) 1 spray NOSTRIL-B BID [facility] Last Admin: 10/18/22 00:30 Dose: Not Given Hydroxyzine HCl (Hydroxyzine Hcl 25 Mg Tablet) 25 mg PO Q6H PRN PRN Reason: Anxiety Magnesium Hydroxide (Milk Of Magnesia 30 Ml Oral.Susp) 30 ml PO DAILY PRN PRN Reason: Constipation Risperidone (Risperidone 1 Mg Tablet) 1 mg PO BID [facility] Last Admin: 10/17/22 22:03 Dose: 1 mg Trazodone HCl (Trazodone Hcl 50 Mg Tablet) 50 mg PO BEDTIME PRN PRN Reason: Insomnia Allergies Allergies Allergy/AdvReac Type Severity Reaction Status Date / Time Unable to Assess Allergy Verified 10/13/22 08:24 Assessment & Plan Assessment & Plan (1) Schizophrenia: Status: Acute Code(s): F20.9 - Schizophrenia, unspecified Plan Mr Wan is a 42 year-old male with what appears to be hx of schizophrenia. Pt brought in by police to [facility] after e was found wondering and reporting hearing voices telling him that world is ending. Pt reports he is distressed by voices, which he reports affect his ability to work. At the same time, he states he will not take any psychotropic medication as he thinks these medications are harmful. He request a halfway. He also reports problems with memory including difficulty retaining information getting lost, not remembering aspects of his past. He agrees to have MOCA done. PLAN 1. Admit to M3, CV, 15 minutes checks for safety. 2. Obtain collateral information 3. Aftercare planning. 10/15- start risperidone 1mg po BID. 10/16 continue treatment 10/17 increase risperidone to 2mg po BID, will add decongestant, antihistamine. I spent minutes with the patient and/or on the patient floor today, greater than?50% of which was spent counseling/coordinating care. Reason for contiued inpatient stay Substantial Risk for: inability to function
[2022-10-17 18:00] VITALS: BP 128/72; PULSE 68; TEMP 36.8; O2SAT 98
--- NOTE | 2022-10-18 00:50 | HO.PSYCHPN ---
Subjective Subjective Date of Service: 10/18/22 Reason For Visit: AH Interim History: Discussed with team. Pt is still internally preoccupied, thought blocking, isolative. I attempted to speak with pt, however he is asleep and did not rouse when T/W tried to wake him. Medication Compliance: Yes Side effects from medications: No Attending Groups: No Review of Systems Acute medical concerns: No Medical Review of Systems: unchanged Mental Status Exam Mental Status Exam Narrative: Appearance: casually groomed, fair hygiene, in NAD Behavior: guarded, suspicious Speech: clear, delayed response, minimally spontaneous TP: thought blocking TC: suspicious about medications, people, worried about his memory AH: telling him that the world is going to end VH: denies Delusions: suspiciousness, no over paranoid reports other than not trusting medications nor believing in medical conditions, but suspect underlying paranoia Insight/judgment: poor x 2. Memory/cog: alert, oriented to place, not situation, reports memory problems, may do MOCA. Diagnostics Vital Signs (24Hr): Vital Signs - 24 hr 10/17/22 09:30 10/17/22 18:00 Temperature 98.1 F 98.2 F Pulse Rate 101 H 68 Blood Pressure 144/80 H 128/72 Pulse Oximetry 98 98 Oxygen Delivery Method Room Air Room Air BMI result Body Mass Index 23.9 Labs Results: 10/13/22 09:46 10/13/22 09:46 Imaging Radiology Impressions: ITS Impressions Chest X-Ray 10/13/22 10:25 IMPRESSION: No acute cardiopulmonary process. Head CT 10/13/22 10:48 IMPRESSION: 1. No acute intracranial process seen. 2. Moderate cerebral volume loss. 3. Chronic bilateral ethmoid and right frontal sinus inflammatory changes. Medications Medications Current Medications Acetaminophen (Acetaminophen 325 Mg Tablet) 650 mg PO Q6H PRN PRN Reason: Headache/Pain Mild Scale (1-3) Last Admin: 10/16/22 05:31 Dose: 650 mg Al Hydroxide/Mg Hydroxide (Magnesium Hydrox/Alum Hydrox 30 Ml Oral.Susp) 30 ml PO Q6H PRN PRN Reason: Heartburn/Nausea Fluticasone Propionate (Fluticasone Propionate Nasal 16 Gm [place]) 1 spray NOSTRIL-B BID [facility] Last Admin: 10/18/22 00:30 Dose: Not Given Hydroxyzine HCl (Hydroxyzine Hcl 25 Mg Tablet) 25 mg PO Q6H PRN PRN Reason: Anxiety Magnesium Hydroxide (Milk Of Magnesia 30 Ml Oral.Susp) 30 ml PO DAILY PRN PRN Reason: Constipation Risperidone (Risperidone 1 Mg Tablet) 1 mg PO BID [facility] Last Admin: 10/17/22 22:03 Dose: 1 mg Trazodone HCl (Trazodone Hcl 50 Mg Tablet) 50 mg PO BEDTIME PRN PRN Reason: Insomnia Allergies Allergies Allergy/AdvReac Type Severity Reaction Status Date / Time Unable to Assess Allergy Verified 10/13/22 08:24 Assessment & Plan Assessment & Plan (1) Schizophrenia: Status: Acute Code(s): F20.9 - Schizophrenia, unspecified Plan Mr Wan is a 42 year-old male with what appears to be hx of schizophrenia. Pt brought in by police to [facility] after e was found wondering and reporting hearing voices telling him that world is ending. Pt reports he is distressed by voices, which he reports affect his ability to work. At the same time, he states he will not take any psychotropic medication as he thinks these medications are harmful. He request a penitentiary. He also reports problems with memory including difficulty retaining information getting lost, not remembering aspects of his past. He agrees to have MOCA done. PLAN 1. Admit to M3, CV, 15 minutes checks for safety. 2. Obtain collateral information 3. Aftercare planning. 10/15- start risperidone 1mg po BID. 10/16 continue treatment 10/17 increase risperidone to 2mg po BID, will add decongestant, antihistamine. 10/18 No med changes, pt is isolative I spent minutes with the patient and/or on the patient floor today, greater than?50% of which was spent counseling/coordinating care. Patient educated on: other Reason for contiued inpatient stay Substantial Risk for: inability to function, rapid decompensation and med/psych decompensation
[2022-10-18] MEDS: risperiDONE 2 MG TABLET PO ×2 (08:57→20:36)
[2022-10-18 10:09] VITALS: BP 137/91; PULSE 75; RESP 16; TEMP 36.3; O2SAT 100
[2022-10-18 20:20] VITALS: BP 144/65; PULSE 95; RESP 16; TEMP 36.7; O2SAT 98
--- NOTE | 2022-10-19 01:47 | P.PNPSI_ITS ---
Subjective Subjective Date of Service: 10/19/22 Reason For Visit: AH Subjective Notes: Cox Warning and Conditional Voluntary Interim History: Discussed with team. Spoke with pt. Says he has a lot of voices and the voices keep me in a delusion. He wakes up through the night. Energy is okay but needs a mid-day nap. Says his memory is a real big issue and I get lost out there. Describes dissociative episodes, neuro consult? Denies benefit on risperdal thus far. Hoping to get his replacement [facility] card sent to unit tomorrow. Medication Compliance: Yes Side effects from medications: No Attending Groups: Intermittent Review of Systems Acute medical concerns: No Medical Review of Systems: unchanged Mental Status Exam Mental Status Exam Narrative: Appearance: casually groomed, fair hygiene, in NAD Behavior: guarded, suspicious Speech: clear, delayed response, minimally spontaneous TP: thought blocking TC: suspicious about medications, people, worried about his memory AH: telling him that the world is going to end VH: denies Delusions: suspiciousness, no over paranoid reports other than not trusting medications nor believing in medical conditions, but suspect underlying paranoia Insight/judgment: poor x 2. Memory/cog: alert, oriented to place, not situation, reports memory problems, may do MOCA. Diagnostics Vital Signs (24Hr): Vital Signs - 24 hr 10/18/22 10:09 10/18/22 20:20 Temperature 97.4 F 98.1 F Pulse Rate 75 95 Respiratory Rate 16 16 Blood Pressure 137/91 H 144/65 H Pulse Oximetry 100 98 Oxygen Delivery Method Room Air Room Air BMI result Body Mass Index 23.9 Labs Results: 10/13/22 09:46 10/13/22 09:46 Imaging Radiology Impressions: ITS Impressions Chest X-Ray 10/13/22 10:25 IMPRESSION: No acute cardiopulmonary process. Head CT 10/13/22 10:48 IMPRESSION: 1. No acute intracranial process seen. 2. Moderate cerebral volume loss. 3. Chronic bilateral ethmoid and right frontal sinus inflammatory changes. Medications Medications Current Medications Acetaminophen (Acetaminophen 325 Mg Tablet) 650 mg PO Q6H PRN PRN Reason: Headache/Pain Mild Scale (1-3) Last Admin: 10/16/22 05:31 Dose: 650 mg Al Hydroxide/Mg Hydroxide (Magnesium Hydrox/Alum Hydrox 30 Ml Oral.Susp) 30 ml PO Q6H PRN PRN Reason: Heartburn/Nausea Fluticasone Propionate (Fluticasone Propionate Nasal 16 Gm [place]) 1 spray NOSTRIL-B BID [facility] Last Admin: 10/18/22 20:42 Dose: Not Given Guaifenesin/Dextromethorphan (Guaifenesin Dm 600/30 1 Tab Tab.Er.12h) 1 tab PO BID [facility] Last Admin: 10/18/22 20:42 Dose: Not Given Hydroxyzine HCl (Hydroxyzine Hcl 25 Mg Tablet) 25 mg PO Q6H PRN PRN Reason: Anxiety Loratadine (Loratadine 10 Mg Tablet) 10 mg PO DAILY [facility] Last Admin: 10/18/22 08:59 Dose: Not Given Magnesium Hydroxide (Milk Of Magnesia 30 Ml Oral.Susp) 30 ml PO DAILY PRN PRN Reason: Constipation Risperidone (Risperidone 2 Mg Tablet) 2 mg PO BID [facility] Last Admin: 10/18/22 20:36 Dose: 2 mg Trazodone HCl (Trazodone Hcl 50 Mg Tablet) 50 mg PO BEDTIME PRN PRN Reason: Insomnia Allergies Allergies Allergy/AdvReac Type Severity Reaction Status Date / Time Unable to Assess Allergy Verified 10/13/22 08:24 Assessment & Plan Assessment & Plan (1) Schizophrenia: Status: Acute Code(s): F20.9 - Schizophrenia, unspecified Plan Mr Wan is a 42 year-old male with what appears to be hx of schizophrenia. Pt brought in by police [place] [facility] [place] after e was found wondering and reporting hearing voices telling him that world is ending. Pt reports he is distressed by voices, which he reports affect his ability to work. At the same time, he states he will not take any psychotropic medication as he thinks these medications are harmful. He request a retirement. He also reports problems with memory including difficulty retaining information getting lost, not remembering aspects of his past. He agrees to have MOCA done. PLAN 1. Admit to M3, CV, 15 minutes checks for safety. 2. Obtain collateral information 3. Aftercare planning. 10/15- start risperidone 1mg po BID. 10/16 continue treatment 10/17 increase risperidone to 2mg po BID, will add decongestant, antihistamine. 10/18 No med changes, pt is isolative 10/19 no med changes, consider neuro consult due to c/o memory although may just be due to psychosis I spent minutes with the patient and/or on the patient floor today, greater than?50% of which was spent counseling/coordinating care. Patient educated on: diagnosis, medication risk/benefits and therapeutic strategies Reason for contiued inpatient stay Substantial Risk for: rapid decompensation and med/psych decompensation
[2022-10-19 08:15] VITALS: BP 145/88; PULSE 87; RESP 16; TEMP 36.1; O2SAT 100
[2022-10-19] MEDS: risperiDONE 2 MG TABLET PO ×2 (09:06→20:32)
[2022-10-19 20:28] VITALS: BP 124/74; PULSE 94; RESP 16; TEMP 36.7; O2SAT 99
[2022-10-20 06:00] VITALS: BP 117/60; PULSE 97; RESP 16; TEMP 36.6; O2SAT 95
[2022-10-20] MEDS: risperiDONE 2 MG TABLET PO ×2 (09:49→20:21)
--- NOTE | 2022-10-20 12:28 | HO.PSYCHPN ---
Subjective Subjective Date of Service: 10/20/22 Reason For Visit: AH Subjective Notes: Conditional Voluntary Interim History: Pt reports he continues to hear voices, mostly telling him is the end of the world. He reports nasal congestion and cough is better- declined taking decongestant and antihistamine. Pt reports he is waiting for debit card. He reports he plans to go to [place] [facility]. continues to claim he does not remember parts of his past including why he moved to [place] or his parents. However, based on moca, his reports do not appear to be neurological but psychiatric. He is able to retain information from day to day and remember people he has met. His visual-spatial skills and executive function are intact- not supporting his reports of getting lost or the awareness he has about his memory issues. Medication Compliance: Yes Review of Systems Review of Systems Yes all other systems are reviewed and are negative Constitutional: Reports no additional constitutional complaints, Denies chills, Denies difficulty sleeping, Denies fever(s), Denies headache(s), Denies night sweats and Denies poor appetite Eyes: Reports no additional eye complaints, Denies blurry vision, Denies change in vision, Denies diplopia, Denies eye discharge, Denies loss of vision and Denies eye pain Denies dizziness and Denies headache(s) Cardiovascular: Reports no additional cardiovascular complaints, Denies chest pain, Denies lightheadedness, Denies Loss of Consciousness and Denies dyspnea Respiratory: Reports no additional respiratory complaints and Denies dyspnea Gastrointestinal: Reports no additional gastrointestinal complaints, Denies abdominal pain, Denies melena, Denies hematochezia, Denies change in bowel habits and Denies change in stool character Genitourinary: Reports no additional male genitourinary complaints, Denies hematuria, Denies oliguria, Denies difficulty urinating, Denies dysuria, Denies urinary frequency, Denies urinary hesitancy, Denies urinary incontinence and Denies urinary urgency Musculoskeletal: Reports no additional musculoskeletal complaints, Denies numbness and Denies tingling Denies dizziness, Denies headache(s), Denies loss of vision, Denies numbness and Denies tingling Psychiatric: Reports no additional psychiatric complaints, Reports auditory hallucinations, Denies homicidal ideation and Denies suicidal ideation Endocrine: Reports no additional endocrine complaints Hematologic/Lymphatic: Reports no additional hematologic/lymphatic complaints Allergic/Immunologic: Reports no additional allergic/immunologic complaints Mental Status Exam Mental Status Exam Narrative: Appearance: casually groomed, fair hygiene, in NAD Behavior: guarded, suspicious Speech: clear, delayed response, minimally spontaneous TP: thought blocking TC: suspicious about medications, people, worried about his memory AH: telling him that the world is going to end VH: denies Delusions: suspiciousness, no over paranoid reports other than not trusting medications nor believing in medical conditions, but suspect underlying paranoia Insight/judgment: poor x 2. Memory/cog: alert, oriented to place, not situation, reports memory problems, may do MOCA. Diagnostics Vital Signs (24Hr): Vital Signs - 24 hr 10/20/22 20:00 Temperature 97.8 F Pulse Rate 87 Blood Pressure 123/75 Pulse Oximetry 99 Oxygen Delivery Method Room Air BMI result Body Mass Index 23.9 Labs Results: 10/13/22 09:46 10/13/22 09:46 Imaging Radiology Impressions: ITS Impressions Chest X-Ray 10/13/22 10:25 IMPRESSION: No acute cardiopulmonary process. Head CT 10/13/22 10:48 IMPRESSION: 1. No acute intracranial process seen. 2. Moderate cerebral volume loss. 3. Chronic bilateral ethmoid and right frontal sinus inflammatory changes. Medications Medications Current Medications Acetaminophen (Acetaminophen 325 Mg Tablet) 650 mg PO Q6H PRN PRN Reason: Headache/Pain Mild Scale (1-3) Last Admin: 10/16/22 05:31 Dose: 650 mg Al Hydroxide/Mg Hydroxide (Magnesium Hydrox/Alum Hydrox 30 Ml Oral.Susp) 30 ml PO Q6H PRN PRN Reason: Heartburn/Nausea Guaifenesin/Dextromethorphan (Guaifenesin Dm 600/30 1 Tab Tab.Er.12h) 1 tab PO BID [facility] Last Admin: 10/20/22 20:23 Dose: Not Given Hydroxyzine HCl (Hydroxyzine Hcl 25 Mg Tablet) 25 mg PO Q6H PRN PRN Reason: Anxiety Loratadine (Loratadine 10 Mg Tablet) 10 mg PO DAILY [facility] Last Admin: 10/20/22 09:49 Dose: Not Given Magnesium Hydroxide (Milk Of Magnesia 30 Ml Oral.Susp) 30 ml PO DAILY PRN PRN Reason: Constipation Risperidone (Risperidone 2 Mg Tablet) 2 mg PO BID [facility] Last Admin: 10/20/22 20:21 Dose: 2 mg Trazodone HCl (Trazodone Hcl 50 Mg Tablet) 50 mg PO BEDTIME PRN PRN Reason: Insomnia Allergies Allergies Allergy/AdvReac Type Severity Reaction Status Date / Time Unable to Assess Allergy Verified 10/13/22 08:24 Assessment & Plan Assessment & Plan (1) Schizophrenia: Status: Acute Code(s): F20.9 - Schizophrenia, unspecified Plan Mr Wan is a 42 year-old male with what appears to be hx of schizophrenia. Pt brought in by police to [facility] [place] after e was found wondering and reporting hearing voices telling him that world is ending. Pt reports he is distressed by voices, which he reports affect his ability to work. At the same time, he states he will not take any psychotropic medication as he thinks these medications are harmful. He request a [place] [facility]. He also reports problems with memory including difficulty retaining information getting lost, not remembering aspects of his past. He agrees to have MOCA done. PLAN 1. Admit to M3, CV, 15 minutes checks for safety. 2. Obtain collateral information 3. Aftercare planning. 10/15- start risperidone 1mg po BID. 10/16 continue treatment 10/17 increase risperidone to 2mg po BID, will add decongestant, antihistamine. 10/18 No med changes, pt is isolative 10/19 no med changes 10/20 continue current tx. I spent minutes with the patient and/or on the patient floor today, greater than?50% of which was spent counseling/coordinating care. Reason for contiued inpatient stay Substantial Risk for: inability to function
[2022-10-20 20:00] VITALS: BP 123/75; PULSE 87; TEMP 36.6; O2SAT 99
[2022-10-21 10:00] VITALS: BP 131/79; PULSE 84; RESP 18; TEMP 36.6; O2SAT 98
[2022-10-21] MEDS: risperiDONE 2 MG TABLET PO ×2 (10:26→20:50)
--- NOTE | 2022-10-21 12:24 | HO.PSYCHPN ---
Subjective Subjective Date of Service: 10/21/22 Reason For Visit: AH Subjective Notes: Conditional Voluntary Interim History: Pt reports he is sleeping better. He denies SI/HI. he continues to report hearing voices. He reports no improvement with risperidone. He agreed to try prolixin. He states he is waiting for debit card and then go to longterm. No behavioral concerns. Medication Compliance: Yes Review of Systems Review of Systems Yes all other systems are reviewed and are negative Constitutional: Reports no additional constitutional complaints, Denies chills, Denies difficulty sleeping, Denies fever(s), Denies headache(s), Denies night sweats and Denies poor appetite Eyes: Reports no additional eye complaints, Denies blurry vision, Denies change in vision, Denies diplopia, Denies eye discharge, Denies loss of vision and Denies eye pain Denies dizziness and Denies headache(s) Cardiovascular: Reports no additional cardiovascular complaints, Denies chest pain, Denies lightheadedness, Denies Loss of Consciousness and Denies dyspnea Respiratory: Reports no additional respiratory complaints and Denies dyspnea Gastrointestinal: Reports no additional gastrointestinal complaints, Denies abdominal pain, Denies melena, Denies hematochezia, Denies change in bowel habits and Denies change in stool character Genitourinary: Reports no additional male genitourinary complaints, Denies hematuria, Denies oliguria, Denies difficulty urinating, Denies dysuria, Denies urinary frequency, Denies urinary hesitancy, Denies urinary incontinence and Denies urinary urgency Musculoskeletal: Reports no additional musculoskeletal complaints, Denies numbness and Denies tingling Denies dizziness, Denies headache(s), Denies loss of vision, Denies numbness and Denies tingling Psychiatric: Reports no additional psychiatric complaints, Reports auditory hallucinations, Denies homicidal ideation and Denies suicidal ideation Endocrine: Reports no additional endocrine complaints Hematologic/Lymphatic: Reports no additional hematologic/lymphatic complaints Allergic/Immunologic: Reports no additional allergic/immunologic complaints Mental Status Exam Mental Status Exam Narrative: Appearance: casually groomed, fair hygiene, in NAD Behavior: guarded, suspicious Speech: clear, delayed response, minimally spontaneous TP: thought blocking TC: suspicious about medications, people, worried about his memory AH: telling him that the world is going to end VH: denies Delusions: suspiciousness, no over paranoid reports other than not trusting medications nor believing in medical conditions, but suspect underlying paranoia Insight/judgment: poor x 2. Memory/cog: alert, oriented to place, not situation, reports memory problems, may do MOCA. Diagnostics Vital Signs (24Hr): Vital Signs - 24 hr 10/21/22 10:00 10/21/22 20:18 10/22/22 08:39 Temperature 97.9 F 97.6 F 97.2 F Pulse Rate 84 89 75 Respiratory Rate 18 16 18 Blood Pressure 131/79 130/83 140/83 H Pulse Oximetry 98 99 99 Oxygen Delivery Method Room Air Room Air Room Air BMI result Body Mass Index 23.9 Labs Results: 10/13/22 09:46 10/13/22 09:46 Imaging Radiology Impressions: ITS Impressions Chest X-Ray 10/13/22 10:25 IMPRESSION: No acute cardiopulmonary process. Head CT 10/13/22 10:48 IMPRESSION: 1. No acute intracranial process seen. 2. Moderate cerebral volume loss. 3. Chronic bilateral ethmoid and right frontal sinus inflammatory changes. Medications Medications Current Medications Acetaminophen (Acetaminophen 325 Mg Tablet) 650 mg PO Q6H PRN PRN Reason: Headache/Pain Mild Scale (1-3) Last Admin: 10/16/22 05:31 Dose: 650 mg Al Hydroxide/Mg Hydroxide (Magnesium Hydrox/Alum Hydrox 30 Ml Oral.Susp) 30 ml PO Q6H PRN PRN Reason: Heartburn/Nausea Guaifenesin/Dextromethorphan (Guaifenesin Dm 600/30 1 Tab Tab.Er.12h) 1 tab PO BID [facility] Last Admin: 10/22/22 08:41 Dose: Not Given Hydroxyzine HCl (Hydroxyzine Hcl 25 Mg Tablet) 25 mg PO Q6H PRN PRN Reason: Anxiety Loratadine (Loratadine 10 Mg Tablet) 10 mg PO DAILY [facility] Last Admin: 10/22/22 08:41 Dose: Not Given Magnesium Hydroxide (Milk Of Magnesia 30 Ml Oral.Susp) 30 ml PO DAILY PRN PRN Reason: Constipation Risperidone (Risperidone 2 Mg Tablet) 2 mg PO BID [facility] Last Admin: 10/22/22 08:43 Dose: 2 mg Trazodone HCl (Trazodone Hcl 50 Mg Tablet) 50 mg PO BEDTIME PRN PRN Reason: Insomnia Allergies Allergies Allergy/AdvReac Type Severity Reaction Status Date / Time Unable to Assess Allergy Verified 10/13/22 08:24 Assessment & Plan Assessment & Plan (1) Schizophrenia: Status: Acute Code(s): F20.9 - Schizophrenia, unspecified Plan Mr Wan is a 42 year-old male with what appears to be hx of schizophrenia. Pt brought in by police [place] [facility] [place] was found wondering and reporting hearing voices telling him that world is ending. Pt reports he is distressed by voices, which he reports affect his ability to work. At the same time, he states he will not take any psychotropic medication as he thinks these medications are harmful. He request a longterm. He also reports problems with memory including difficulty retaining information getting lost, not remembering aspects of his past. He agrees to have MOCA done. PLAN 1. Admit to M3, CV, 15 minutes checks for safety. 2. Obtain collateral information 3. Aftercare planning. 10/15- start risperidone 1mg po BID. 10/16 continue treatment 10/17 increase risperidone to 2mg po BID, will add decongestant, antihistamine. 10/18 No med changes, pt is isolative 10/19 no med changes 10/20 continue current tx. 10/21 switch to prolixin 5mg po BID. d/c risperidone. I spent minutes with the patient and/or on the patient floor today, greater than?50% of which was spent counseling/coordinating care. Reason for contiued inpatient stay Substantial Risk for: inability to function
[2022-10-21 20:18] VITALS: BP 130/83; PULSE 89; RESP 16; TEMP 36.4; O2SAT 99
--- NOTE | 2022-10-22 07:22 | P.PNPSI_ITS ---
Subjective Subjective Date of Service: 10/22/22 Reason For Visit: AH Subjective Notes: Conditional Voluntary Interim History: Pt reports he does not want to take prolixin, instead wants to go back to higher dose of risperidone. He reports hearing voices, at times reports still feeling as if he is being possed. No SI/HI. Medication Compliance: Yes Review of Systems Review of Systems Yes all other systems are reviewed and are negative Constitutional: Reports no additional constitutional complaints, Denies chills, Denies difficulty sleeping, Denies fever(s), Denies headache(s), Denies night sweats and Denies poor appetite Eyes: Reports no additional eye complaints, Denies blurry vision, Denies change in vision, Denies diplopia, Denies eye discharge, Denies loss of vision and Denies eye pain Denies dizziness and Denies headache(s) Cardiovascular: Reports no additional cardiovascular complaints, Denies chest pain, Denies lightheadedness, Denies Loss of Consciousness and Denies dyspnea Respiratory: Reports no additional respiratory complaints and Denies dyspnea Gastrointestinal: Reports no additional gastrointestinal complaints, Denies abdominal pain, Denies melena, Denies hematochezia, Denies change in bowel habits and Denies change in stool character Genitourinary: Reports no additional male genitourinary complaints, Denies hematuria, Denies oliguria, Denies difficulty urinating, Denies dysuria, Denies urinary frequency, Denies urinary hesitancy, Denies urinary incontinence and Denies urinary urgency Musculoskeletal: Reports no additional musculoskeletal complaints, Denies numbness and Denies tingling Denies dizziness, Denies headache(s), Denies loss of vision, Denies numbness and Denies tingling Psychiatric: Reports no additional psychiatric complaints, Reports auditory hallucinations, Denies homicidal ideation and Denies suicidal ideation Endocrine: Reports no additional endocrine complaints Hematologic/Lymphatic: Reports no additional hematologic/lymphatic complaints Allergic/Immunologic: Reports no additional allergic/immunologic complaints Mental Status Exam Mental Status Exam Narrative: Appearance: casually groomed, fair hygiene, in NAD Behavior: guarded, suspicious Speech: clear, delayed response, minimally spontaneous TP: thought blocking TC: suspicious about medications, people, worried about his memory AH: telling him that the world is going to end VH: denies Delusions: suspiciousness, no over paranoid reports other than not trusting medications nor believing in medical conditions, but suspect underlying paranoia Insight/judgment: poor x 2. Memory/cog: alert, oriented to place, not situation, reports memory problems, may do MOCA. Diagnostics Vital Signs (24Hr): Vital Signs - 24 hr 10/23/22 08:00 10/23/22 21:41 Temperature 98.0 F 98.0 F Pulse Rate 77 77 Respiratory Rate 16 Blood Pressure 127/85 129/81 Pulse Oximetry 100 97 Oxygen Delivery Method Room Air Room Air BMI result Body Mass Index 24.9 Labs Results: 10/13/22 09:46 10/13/22 09:46 Imaging Radiology Impressions: ITS Impressions Chest X-Ray 10/13/22 10:25 IMPRESSION: No acute cardiopulmonary process. Head CT 10/13/22 10:48 IMPRESSION: 1. No acute intracranial process seen. 2. Moderate cerebral volume loss. 3. Chronic bilateral ethmoid and right frontal sinus inflammatory changes. Medications Medications Current Medications Acetaminophen (Acetaminophen 325 Mg Tablet) 650 mg PO Q6H PRN PRN Reason: Headache/Pain Mild Scale (1-3) Last Admin: 10/16/22 05:31 Dose: 650 mg Al Hydroxide/Mg Hydroxide (Magnesium Hydrox/Alum Hydrox 30 Ml Oral.Susp) 30 ml PO Q6H PRN PRN Reason: Heartburn/Nausea Hydroxyzine HCl (Hydroxyzine Hcl 25 Mg Tablet) 25 mg PO Q6H PRN PRN Reason: Anxiety Magnesium Hydroxide (Milk Of Magnesia 30 Ml Oral.Susp) 30 ml PO DAILY PRN PRN Reason: Constipation Risperidone (Risperidone 3 Mg Tablet) 3 mg PO BID [facility] Last Admin: 10/23/22 21:33 Dose: 3 mg Trazodone HCl (Trazodone Hcl 50 Mg Tablet) 50 mg PO BEDTIME PRN PRN Reason: Insomnia Allergies Allergies Allergy/AdvReac Type Severity Reaction Status Date / Time Unable to Assess Allergy Verified 10/13/22 08:24 Assessment & Plan Assessment & Plan (1) Schizophrenia: Status: Acute Code(s): F20.9 - Schizophrenia, unspecified Plan Mr Wan is a 42 year-old male with what appears to be hx of schizophrenia. Pt brought in by police to [facility] [place] after e was found wondering and reporting hearing voices telling him that world is ending. Pt reports he is distressed by voices, which he reports affect his ability to work. At the same time, he states he will not take any psychotropic medication as he thinks these medications are harmful. He request a long-term. He also reports problems with memory including difficulty retaining information getting lost, not remembering aspects of his past. He agrees to have MOCA done. PLAN 1. Admit to M3, CV, 15 minutes checks for safety. 2. Obtain collateral information 3. Aftercare planning. 10/15- start risperidone 1mg po BID. 10/16 continue treatment 10/17 increase risperidone to 2mg po BID, will add decongestant, antihistamine. 10/18 No med changes, pt is isolative 10/19 no med changes 10/20 continue current tx. 10/21 switch to prolixin 5mg po BID. d/c risperidone. 10/22 switch back to risperidone per pt request. I spent minutes with the patient and/or on the patient floor today, greater than?50% of which was spent counseling/coordinating care. Reason for contiued inpatient stay Substantial Risk for: inability to function
[2022-10-22 08:39] VITALS: BP 140/83; PULSE 75; RESP 18; TEMP 36.2; O2SAT 99
[2022-10-22] MEDS: risperiDONE 2 MG TABLET PO (08:43)
[2022-10-22 21:10] VITALS: BP 147/78; PULSE 85; TEMP 36.7; O2SAT 96
--- NOTE | 2022-10-23 07:24 | P.PNPSI_ITS ---
Subjective Subjective Date of Service: 10/23/22 Reason For Visit: Subjective Notes: Conditional Voluntary Interim History: Pt denies any SI/HI. He reports sleeping and eating well. He states he received debit card and can go back to a correction. No signs of aggression towards self or others. taking risperidone. Medication Compliance: Yes Review of Systems Review of Systems Yes all other systems are reviewed and are negative Constitutional: Reports no additional constitutional complaints, Denies chills, Denies difficulty sleeping, Denies fever(s), Denies headache(s), Denies night sweats and Denies poor appetite Eyes: Reports no additional eye complaints, Denies blurry vision, Denies change in vision, Denies diplopia, Denies eye discharge, Denies loss of vision and Denies eye pain Denies dizziness and Denies headache(s) Cardiovascular: Reports no additional cardiovascular complaints, Denies chest pain, Denies lightheadedness, Denies Loss of Consciousness and Denies dyspnea Respiratory: Reports no additional respiratory complaints and Denies dyspnea Gastrointestinal: Reports no additional gastrointestinal complaints, Denies abdominal pain, Denies melena, Denies hematochezia, Denies change in bowel habits and Denies change in stool character Genitourinary: Reports no additional male genitourinary complaints, Denies hematuria, Denies oliguria, Denies difficulty urinating, Denies dysuria, Denies urinary frequency, Denies urinary hesitancy, Denies urinary incontinence and Denies urinary urgency Musculoskeletal: Reports no additional musculoskeletal complaints, Denies numbness and Denies tingling Denies dizziness, Denies headache(s), Denies loss of vision, Denies numbness and Denies tingling Psychiatric: Reports no additional psychiatric complaints, Reports auditory hallucinations, Denies homicidal ideation and Denies suicidal ideation Endocrine: Reports no additional endocrine complaints Hematologic/Lymphatic: Reports no additional hematologic/lymphatic complaints Allergic/Immunologic: Reports no additional allergic/immunologic complaints Mental Status Exam Mental Status Exam Narrative: Appearance: casually groomed, fair hygiene, in NAD Behavior: guarded, suspicious Speech: clear, delayed response, minimally spontaneous TP: thought blocking TC: suspicious about medications, people, worried about his memory AH: telling him that the world is going to end VH: denies Delusions: suspiciousness, no over paranoid reports other than not trusting medications nor believing in medical conditions, but suspect underlying paranoia Insight/judgment: poor x 2. Memory/cog: alert, oriented x 3. MOCA completed shows mostly impairments in recall, otherwise wnl. Diagnostics Vital Signs (24Hr): Vital Signs - 24 hr 10/23/22 08:00 10/23/22 21:41 Temperature 98.0 F 98.0 F Pulse Rate 77 77 Respiratory Rate 16 Blood Pressure 127/85 129/81 Pulse Oximetry 100 97 Oxygen Delivery Method Room Air Room Air BMI result Body Mass Index 24.9 Labs Results: 10/13/22 09:46 10/13/22 09:46 Imaging Radiology Impressions: ITS Impressions Chest X-Ray 10/13/22 10:25 IMPRESSION: No acute cardiopulmonary process. Head CT 10/13/22 10:48 IMPRESSION: 1. No acute intracranial process seen. 2. Moderate cerebral volume loss. 3. Chronic bilateral ethmoid and right frontal sinus inflammatory changes. Medications Medications Current Medications Acetaminophen (Acetaminophen 325 Mg Tablet) 650 mg PO Q6H PRN PRN Reason: Headache/Pain Mild Scale (1-3) Last Admin: 10/16/22 05:31 Dose: 650 mg Al Hydroxide/Mg Hydroxide (Magnesium Hydrox/Alum Hydrox 30 Ml Oral.Susp) 30 ml PO Q6H PRN PRN Reason: Heartburn/Nausea Hydroxyzine HCl (Hydroxyzine Hcl 25 Mg Tablet) 25 mg PO Q6H PRN PRN Reason: Anxiety Magnesium Hydroxide (Milk Of Magnesia 30 Ml Oral.Susp) 30 ml PO DAILY PRN PRN Reason: Constipation Risperidone (Risperidone 3 Mg Tablet) 3 mg PO BID [facility] Last Admin: 10/23/22 21:33 Dose: 3 mg Trazodone HCl (Trazodone Hcl 50 Mg Tablet) 50 mg PO BEDTIME PRN PRN Reason: Insomnia Allergies Allergies Allergy/AdvReac Type Severity Reaction Status Date / Time Unable to Assess Allergy Verified 10/13/22 08:24 Assessment & Plan Assessment & Plan (1) Schizophrenia: Status: Acute Code(s): F20.9 - Schizophrenia, unspecified Plan Mr Wan is a 42 year-old male with what appears to be hx of schizophrenia. Pt brought in by police to [facility] [place] after e was found wondering and reporting hearing voices telling him that world is ending. Pt reports he is distressed by voices, which he reports affect his ability to work. At the same time, he states he will not take any psychotropic medication as he thinks these medications are harmful. He request a correction. He also reports problems with memory including difficulty retaining information getting lost, not remembering aspects of his past. He agrees to have MOCA done. PLAN 1. Admit to M3, CV, 15 minutes checks for safety. 2. Obtain collateral information 3. Aftercare planning. 10/15- start risperidone 1mg po BID. 10/16 continue treatment 10/17 increase risperidone to 2mg po BID, will add decongestant, antihistamine. 10/18 No med changes, pt is isolative 10/19 no med changes 10/20 continue current tx. 10/21 switch to prolixin 5mg po BID. d/c risperidone. 10/22 switch back to risperidone per pt request. 10/23 continue current tx. I spent minutes with the patient and/or on the patient floor today, greater than?50% of which was spent counseling/coordinating care. Reason for contiued inpatient stay Substantial Risk for: inability to function
[2022-10-23 08:00] VITALS: BP 127/85; PULSE 77; RESP 16; TEMP 36.7; O2SAT 100; BMI 24.9
[2022-10-23] MEDS: risperiDONE 3 MG TABLET PO ×2 (08:55→21:33)
[2022-10-23 21:41] VITALS: BP 129/81; PULSE 77; TEMP 36.7; O2SAT 97
[2022-10-24 08:07] VITALS: BP 126/88; PULSE 101; RESP 18; TEMP 36.1; O2SAT 97
[2022-10-24] MEDS: risperiDONE 3 MG TABLET PO ×2 (08:08→21:12)
--- NOTE | 2022-10-24 12:17 | HO.PSYCHPN ---
Subjective Subjective Date of Service: 10/24/22 Reason For Visit: AH Subjective Notes: Conditional Voluntary Interim History: Pt reports he feels healthier. He reports he continues to hear voices. He seems less guarded and suspicious. Pt denies SI/HI. He reports he hopes to be discharged sometime next week to alf. No behavioral concerns. Medication Compliance: Yes Side effects from medications: No Attending Groups: No Review of Systems Review of Systems Yes all other systems are reviewed and are negative Constitutional: Reports no additional constitutional complaints, Denies chills, Denies difficulty sleeping, Denies fever(s), Denies headache(s), Denies night sweats and Denies poor appetite Eyes: Reports no additional eye complaints, Denies blurry vision, Denies change in vision, Denies diplopia, Denies eye discharge, Denies loss of vision and Denies eye pain Denies dizziness and Denies headache(s) Cardiovascular: Reports no additional cardiovascular complaints, Denies chest pain, Denies lightheadedness, Denies Loss of Consciousness and Denies dyspnea Respiratory: Reports no additional respiratory complaints and Denies dyspnea Gastrointestinal: Reports no additional gastrointestinal complaints, Denies abdominal pain, Denies melena, Denies hematochezia, Denies change in bowel habits and Denies change in stool character Genitourinary: Reports no additional male genitourinary complaints, Denies hematuria, Denies oliguria, Denies difficulty urinating, Denies dysuria, Denies urinary frequency, Denies urinary hesitancy, Denies urinary incontinence and Denies urinary urgency Musculoskeletal: Reports no additional musculoskeletal complaints, Denies numbness and Denies tingling Denies dizziness, Denies headache(s), Denies loss of vision, Denies numbness and Denies tingling Psychiatric: Reports no additional psychiatric complaints, Reports auditory hallucinations, Denies homicidal ideation and Denies suicidal ideation Endocrine: Reports no additional endocrine complaints Hematologic/Lymphatic: Reports no additional hematologic/lymphatic complaints Allergic/Immunologic: Reports no additional allergic/immunologic complaints Mental Status Exam Mental Status Exam Narrative: Appearance: casually groomed, fair hygiene, in NAD Behavior: guarded, suspicious Speech: clear, delayed response, minimally spontaneous TP: thought blocking TC: suspicious about medications, people, worried about his memory AH: telling him that the world is going to end VH: denies Delusions: suspiciousness, no over paranoid reports other than not trusting medications nor believing in medical conditions, but suspect underlying paranoia Insight/judgment: poor x 2. Memory/cog: alert, oriented x 3. MOCA completed shows mostly impairments in recall, otherwise wnl. Diagnostics Vital Signs (24Hr): Vital Signs - 24 hr 10/23/22 21:41 10/24/22 08:07 Temperature 98.0 F 96.9 F Pulse Rate 77 101 H Respiratory Rate 18 Blood Pressure 129/81 126/88 Pulse Oximetry 97 97 Oxygen Delivery Method Room Air Room Air BMI result Body Mass Index 24.9 Labs Results: 10/13/22 09:46 10/13/22 09:46 Imaging Radiology Impressions: ITS Impressions Chest X-Ray 10/13/22 10:25 IMPRESSION: No acute cardiopulmonary process. Head CT 10/13/22 10:48 IMPRESSION: 1. No acute intracranial process seen. 2. Moderate cerebral volume loss. 3. Chronic bilateral ethmoid and right frontal sinus inflammatory changes. Medications Medications Current Medications Acetaminophen (Acetaminophen 325 Mg Tablet) 650 mg PO Q6H PRN PRN Reason: Headache/Pain Mild Scale (1-3) Last Admin: 10/16/22 05:31 Dose: 650 mg Al Hydroxide/Mg Hydroxide (Magnesium Hydrox/Alum Hydrox 30 Ml Oral.Susp) 30 ml PO Q6H PRN PRN Reason: Heartburn/Nausea Hydroxyzine HCl (Hydroxyzine Hcl 25 Mg Tablet) 25 mg PO Q6H PRN PRN Reason: Anxiety Magnesium Hydroxide (Milk Of Magnesia 30 Ml Oral.Susp) 30 ml PO DAILY PRN PRN Reason: Constipation Risperidone (Risperidone 3 Mg Tablet) 3 mg PO BID [facility] Last Admin: 10/24/22 08:08 Dose: 3 mg Trazodone HCl (Trazodone Hcl 50 Mg Tablet) 50 mg PO BEDTIME PRN PRN Reason: Insomnia Allergies Allergies Allergy/AdvReac Type Severity Reaction Status Date / Time Unable to Assess Allergy Verified 10/13/22 08:24 Assessment & Plan Assessment & Plan (1) Schizophrenia: Status: Acute Code(s): F20.9 - Schizophrenia, unspecified Plan Mr Wan is a 42 year-old male with what appears to be hx of schizophrenia. Pt [place] [facility] [place] wondering and reporting hearing voices telling him that world is ending. Pt reports he is distressed by voices, which he reports affect his ability to work. At the same time, he states he will not take any psychotropic medication as he thinks these medications are harmful. He request a alf. He also reports problems with memory including difficulty retaining information getting lost, not remembering aspects of his past. He agrees to have MOCA done. PLAN 1. Admit to M3, CV, 15 minutes checks for safety. 2. Obtain collateral information 3. Aftercare planning. 10/15- start risperidone 1mg po BID. 10/16 continue treatment 10/17 increase risperidone to 2mg po BID, will add decongestant, antihistamine. 10/18 No med changes, pt is isolative 10/19 no med changes 10/20 continue current tx. 10/21 switch to prolixin 5mg po BID. d/c risperidone. 10/22 switch back to risperidone per pt request. 10/23 continue current tx. 10/24 continue risperidone 3mg po BID. I spent minutes with the patient and/or on the patient floor today, greater than?50% of which was spent counseling/coordinating care. Reason for contiued inpatient stay Substantial Risk for: inability to function
--- NOTE | 2022-10-24 14:08 | PC.NURSE ---
Patient reported feeling jittery today. Mila Ross notified. Observed resting in bed at this time.
[2022-10-25 08:30] VITALS: BP 127/74; PULSE 86; RESP 16; TEMP 36.7; O2SAT 98
[2022-10-25] MEDS: risperiDONE 3 MG TABLET PO ×2 (09:15→22:26)
--- NOTE | 2022-10-25 12:03 | P.PNPSI_ITS ---
Subjective Subjective Date of Service: 10/25/22 Reason For Visit: AH Subjective Notes: Conditional Voluntary Interim History: Pt continues to report he feels healthier. He reports he continues to hear voices. He seems less guarded and suspicious. Pt denies SI/HI. He reports he hopes to be discharged sometime next week to skilled nursing. No behavioral concerns. Review of Systems Review of Systems Yes all other systems are reviewed and are negative Constitutional: Reports no additional constitutional complaints, Denies chills, Denies difficulty sleeping, Denies fever(s), Denies headache(s), Denies night sweats and Denies poor appetite Eyes: Reports no additional eye complaints, Denies blurry vision, Denies change in vision, Denies diplopia, Denies eye discharge, Denies loss of vision and Denies eye pain Denies dizziness and Denies headache(s) Cardiovascular: Reports no additional cardiovascular complaints, Denies chest pain, Denies lightheadedness, Denies Loss of Consciousness and Denies dyspnea Respiratory: Reports no additional respiratory complaints and Denies dyspnea Gastrointestinal: Reports no additional gastrointestinal complaints, Denies abdominal pain, Denies melena, Denies hematochezia, Denies change in bowel habits and Denies change in stool character Genitourinary: Reports no additional male genitourinary complaints, Denies hematuria, Denies oliguria, Denies difficulty urinating, Denies dysuria, Denies urinary frequency, Denies urinary hesitancy, Denies urinary incontinence and Denies urinary urgency Musculoskeletal: Reports no additional musculoskeletal complaints, Denies numbness and Denies tingling Denies dizziness, Denies headache(s), Denies loss of vision, Denies numbness and Denies tingling Psychiatric: Reports no additional psychiatric complaints, Reports auditory armijo llucinations, Denies homicidal ideation and Denies suicidal ideation Endocrine: Reports no additional endocrine complaints Hematologic/Lymphatic: Reports no additional hematologic/lymphatic complaints Allergic/Immunologic: Reports no additional allergic/immunologic complaints Mental Status Exam Mental Status Exam Narrative: Appearance: casually groomed, fair hygiene, in NAD Behavior: guarded, suspicious Speech: clear, delayed response, minimally spontaneous TP: thought blocking TC: suspicious about medications, people, worried about his memory AH: telling him that the world is going to end VH: denies Delusions: suspiciousness, no over paranoid reports other than not trusting medications nor believing in medical conditions, but suspect underlying paranoia Insight/judgment: poor x 2. Memory/cog: alert, oriented x 3. MOCA completed shows mostly impairments in recall, otherwise wnl. Diagnostics Vital Signs (24Hr): Vital Signs - 24 hr 10/26/22 18:00 Temperature 97.8 F Pulse Rate 86 Respiratory Rate 18 Blood Pressure 112/71 Pulse Oximetry 98 Oxygen Delivery Method Room Air BMI result Body Mass Index 24.9 Labs Results: 10/13/22 09:46 10/13/22 09:46 Imaging Radiology Impressions: ITS Impressions Chest X-Ray 10/13/22 10:25 IMPRESSION: No acute cardiopulmonary process. Head CT 10/13/22 10:48 IMPRESSION: 1. No acute intracranial process seen. 2. Moderate cerebral volume loss. 3. Chronic bilateral ethmoid and right frontal sinus inflammatory changes. Medications Medications Current Medications Acetaminophen (Acetaminophen 325 Mg Tablet) 650 mg PO Q6H PRN PRN Reason: Headache/Pain Mild Scale (1-3) Last Admin: 10/16/22 05:31 Dose: 650 mg Al Hydroxide/Mg Hydroxide (Magnesium Hydrox/Alum Hydrox 30 Ml Oral.Susp) 30 ml PO Q6H PRN PRN Reason: Heartburn/Nausea Hydroxyzine HCl (Hydroxyzine Hcl 25 Mg Tablet) 25 mg PO Q6H PRN PRN Reason: Anxiety Magnesium Hydroxide (Milk Of Magnesia 30 Ml Oral.Susp) 30 ml PO DAILY PRN PRN Reason: Constipation Risperidone (Risperidone 3 Mg Tablet) 3 mg PO BID [facility] Last Admin: 10/26/22 20:37 Dose: 3 mg Trazodone HCl (Trazodone Hcl 50 Mg Tablet) 50 mg PO BEDTIME PRN PRN Reason: Insomnia Allergies Allergies Allergy/AdvReac Type Severity Reaction Status Date / Time Unable to Assess Allergy Verified 10/13/22 08:24 Assessment & Plan Assessment & Plan (1) Schizophrenia: Status: Acute Code(s): F20.9 - Schizophrenia, unspecified Plan Mr Wan is a 42 year-old male with what appears to be hx of schizophrenia. Pt brought in by police to [facility] after e was found wondering and reporting hearing voices telling him that world is ending. Pt reports he is distressed by voices, which he reports affect his ability to work. At the same time, he states he will not take any psychotropic medication as he thinks these medications are harmful. He request a skilled nursing. He also reports problems with memory including difficulty retaining information getting lost, not remembering aspects of his past. He agrees to have MOCA done. PLAN 1. Admit to M3, CV, 15 minutes checks for safety. 2. Obtain collateral information 3. Aftercare planning. 10/15- start risperidone 1mg po BID. 10/16 continue treatment 10/17 increase risperidone to 2mg po BID, will add decongestant, antihistamine. 10/18 No med changes, pt is isolative 10/19 no med changes 10/20 continue current tx. 10/21 switch to prolixin 5mg po BID. d/c risperidone. 10/22 switch back to risperidone per pt request. 10/23 continue current tx. 10/24 continue risperidone 3mg po BID. 10/25 continue tx. some improvement in affect, less hypervigilant and less guarded. I spent minutes with the patient and/or on the patient floor today, greater than?50% of which was spent counseling/coordinating care. Reason for contiued inpatient stay Substantial Risk for: inability to function
[2022-10-25 22:27] VITALS: BP 123/85; PULSE 87; RESP 18; TEMP 35.8; O2SAT 100
[2022-10-26 06:00] VITALS: BP 124/78; PULSE 80; RESP 16; TEMP 36.8; O2SAT 99
[2022-10-26] MEDS: risperiDONE 3 MG TABLET PO ×2 (10:00→20:37)
--- NOTE | 2022-10-26 10:05 | P.PNPSI_ITS ---
Subjective Subjective Date of Service: 10/26/22 Reason For Visit: Interim History: Pt continues to report he feels healthier. He reports he continues to hear voices. He seems less guarded and suspicious. Pt denies SI/HI. He reports he hopes to be discharged sometime next week to senior care. No behavioral concerns. Review of Systems Review of Systems Yes all other systems are reviewed and are negative Constitutional: Reports no additional constitutional complaints, Denies chills, Denies difficulty sleeping, Denies fever(s), Denies headache(s), Denies night sweats and Denies poor appetite Eyes: Reports no additional eye complaints, Denies blurry vision, Denies change in vision, Denies diplopia, Denies eye discharge, Denies loss of vision and Denies eye pain Denies dizziness and Denies headache(s) Cardiovascular: Reports no additional cardiovascular complaints, Denies chest pain, Denies lightheadedness, Denies Loss of Consciousness and Denies dyspnea Respiratory: Reports no additional respiratory complaints and Denies dyspnea Gastrointestinal: Reports no additional gastrointestinal complaints, Denies abdominal pain, Denies melena, Denies hematochezia, Denies change in bowel habits and Denies change in stool character Genitourinary: Reports no additional male genitourinary complaints, Denies hematuria, Denies oliguria, Denies difficulty urinating, Denies dysuria, Denies urinary frequency, Denies urinary hesitancy, Denies urinary incontinence and Denies urinary urgency Musculoskeletal: Reports no additional musculoskeletal complaints, Denies numbness and Denies tingling Denies dizziness, Denies headache(s), Denies loss of vision, Denies numbness and Denies tingling Psychiatric: Reports no additional psychiatric complaints, Reports auditory hallucinations, Denies homicidal ideation and Denies suicidal ideation Endocrine: Reports no additional endocrine complaints Hematologic/Lymphatic: Reports no additional hematologic/lymphatic complaints Allergic/Immunologic: Reports no additional allergic/immunologic complaints Mental Status Exam Mental Status Exam Narrative: Appearance: casually groomed, fair hygiene, in NAD Behavior: guarded, suspicious Speech: clear, delayed response, minimally spontaneous TP: thought blocking TC: suspicious about medications, people, worried about his memory AH: telling him that the world is going to end VH: denies Delusions: suspiciousness, no over paranoid reports other than not trusting medications nor believing in medical conditions, but suspect underlying paranoia Insight/judgment: poor x 2. Memory/cog: alert, oriented x 3. MOCA completed shows mostly impairments in recall, otherwise wnl. Diagnostics Vital Signs (24Hr): Vital Signs - 24 hr 10/26/22 18:00 Temperature 97.8 F Pulse Rate 86 Respiratory Rate 18 Blood Pressure 112/71 Pulse Oximetry 98 Oxygen Delivery Method Room Air BMI result Body Mass Index 24.9 Labs Results: 10/13/22 09:46 10/13/22 09:46 Imaging Radiology Impressions: ITS Impressions Chest X-Ray 10/13/22 10:25 IMPRESSION: No acute cardiopulmonary process. Head CT 10/13/22 10:48 IMPRESSION: 1. No acute intracranial process seen. 2. Moderate cerebral volume loss. 3. Chronic bilateral ethmoid and right frontal sinus inflammatory changes. Medications Medications Current Medications Acetaminophen (Acetaminophen 325 Mg Tablet) 650 mg PO Q6H PRN PRN Reason: Headache/Pain Mild Scale (1-3) Last Admin: 10/16/22 05:31 Dose: 650 mg Al Hydroxide/Mg Hydroxide (Magnesium Hydrox/Alum Hydrox 30 Ml Oral.Susp) 30 ml PO Q6H PRN PRN Reason: Heartburn/Nausea Hydroxyzine HCl (Hydroxyzine Hcl 25 Mg Tablet) 25 mg PO Q6H PRN PRN Reason: Anxiety Magnesium Hydroxide (Milk Of Magnesia 30 Ml Oral.Susp) 30 ml PO DAILY PRN PRN Reason: Constipation Risperidone (Risperidone 3 Mg Tablet) 3 mg PO BID [facility]ISCO Last Admin: 10/26/22 20:37 Dose: 3 mg Trazodone HCl (Trazodone Hcl 50 Mg Tablet) 50 mg PO BEDTIME PRN PRN Reason: Insomnia Allergies Allergies Allergy/AdvReac Type Severity Reaction Status Date / Time Unable to Assess Allergy Verified 10/13/22 08:24 Assessment & Plan Assessment & Plan (1) Schizophrenia: Status: Acute Code(s): F20.9 - Schizophrenia, unspecified Plan Mr Wan is a 42 year-old male with what appears to be hx of schizophrenia. Pt brought in by police to [facility] after e was found wondering and reporting hearing voices telling him that world is ending. Pt reports he is distressed by voices, which he reports affect his ability to work. At the same time, he states he will not take any psychotropic medication as he thinks these medications are harmful. He request a senior care. He also reports problems with memory including difficulty retaining information getting lost, not remembering aspects of his past. He agrees to have MOCA done. PLAN 1. Admit to M3, CV, 15 minutes checks for safety. 2. Obtain collateral information 3. Aftercare planning. 10/15- start risperidone 1mg po BID. 10/16 continue treatment 10/17 increase risperidone to 2mg po BID, will add decongestant, antihistamine. 10/18 No med changes, pt is isolative 10/19 no med changes 10/20 continue current tx. 10/21 switch to prolixin 5mg po BID. d/c risperidone. 10/22 switch back to risperidone per pt request. 10/23 continue current tx. 10/24 continue risperidone 3mg po BID. 10/25 continue tx. some improvement in affect, less hypervigilant and less guarded. 10/26 continue tx. I spent minutes with the patient and/or on the patient floor today, greater than?50% of which was spent counseling/coordinating care. Reason for contiued inpatient stay Substantial Risk for: inability to function
[2022-10-26 18:00] VITALS: BP 112/71; PULSE 86; RESP 18; TEMP 36.6; O2SAT 98
[2022-10-27] MEDS: risperiDONE 3 MG TABLET PO ×2 (08:30→20:42)
[2022-10-27 08:32] VITALS: BP 115/77; PULSE 76; RESP 17; TEMP 36.8; O2SAT 98
--- NOTE | 2022-10-27 10:31 | P.PNPSI_ITS ---
Subjective Subjective Date of Service: 10/27/22 Reason For Visit: AH Subjective Notes: Conditional Voluntary Interim History: Pt continues to report he feels healthier. He reports he continues to hear voices. He seems less guarded and suspicious. Pt denies SI/HI. He reports he hopes to be discharged sometime next week to correction. No behavioral concerns. Medication Compliance: Yes Side effects from medications: No Review of Systems Review of Systems Yes all other systems are reviewed and are negative Constitutional: Reports no additional constitutional complaints, Denies chills, Denies difficulty sleeping, Denies fever(s), Denies headache(s), Denies night sweats and Denies poor appetite Eyes: Reports no additional eye complaints, Denies blurry vision, Denies change in vision, Denies diplopia, Denies eye discharge, Denies loss of vision and Denies eye pain Denies dizziness and Denies headache(s) Cardiovascular: Reports no additional cardiovascular complaints, Denies chest pain, Denies lightheadedness, Denies Loss of Consciousness and Denies dyspnea Respiratory: Reports no additional respiratory complaints and Denies dyspnea Gastrointestinal: Reports no additional gastrointestinal complaints, Denies abdominal pain, Denies melena, Denies hematochezia, Denies change in bowel habits and Denies change in stool character Genitourinary: Reports no additional male genitourinary complaints, Denies hematuria, Denies oliguria, Denies difficulty urinating, Denies dysuria, Denies urinary frequency, Denies urinary hesitancy, Denies urinary incontinence and Denies urinary urgency Musculoskeletal: Reports no additional musculoskeletal complaints, Denies numbness and Denies tingling Denies dizziness, Denies headache(s), Denies loss of vision, Denies numbness and Denies tingling Psychiatric: Reports no additional psychiatric complaints, Reports auditory hallucinations, Denies homicidal ideation and Denies suicidal ideation Endocrine: Reports no additional endocrine complaints Hematologic/Lymphatic: Reports no additional hematologic/lymphatic complaints Allergic/Immunologic: Reports no additional allergic/immunologic complaints Mental Status Exam Mental Status Exam Narrative: Appearance: casually groomed, fair hygiene, in NAD Behavior: guarded, suspicious Speech: clear, delayed response, minimally spontaneous TP: thought blocking TC: suspicious about medications, people, worried about his memory AH: telling him that the world is going to end VH: denies Delusions: suspiciousness, no over paranoid reports other than not trusting medications nor believing in medical conditions, but suspect underlying paranoia Insight/judgment: poor x 2. Memory/cog: alert, oriented x 3. MOCA completed shows mostly impairments in recall, otherwise wnl. Diagnostics Vital Signs (24Hr): Vital Signs - 24 hr 10/27/22 20:33 10/28/22 09:35 Temperature 97.9 F 97.8 F Pulse Rate 83 79 Respiratory Rate 16 Blood Pressure 124/78 119/71 Pulse Oximetry 99 98 Oxygen Delivery Method Room Air Room Air BMI result Body Mass Index 24.9 Labs Results: 10/13/22 09:46 10/13/22 09:46 Imaging Radiology Impressions: ITS Impressions Chest X-Ray 10/13/22 10:25 IMPRESSION: No acute cardiopulmonary process. Head CT 10/13/22 10:48 IMPRESSION: 1. No acute intracranial process seen. 2. Moderate cerebral volume loss. 3. Chronic bilateral ethmoid and right frontal sinus inflammatory changes. Medications Medications Current Medications Acetaminophen (Acetaminophen 325 Mg Tablet) 650 mg PO Q6H PRN PRN Reason: Headache/Pain Mild Scale (1-3) Last Admin: 10/16/22 05:31 Dose: 650 mg Al Hydroxide/Mg Hydroxide (Magnesium Hydrox/Alum Hydrox 30 Ml Oral.Susp) 30 ml PO Q6H PRN PRN Reason: Heartburn/Nausea Hydroxyzine HCl (Hydroxyzine Hcl 25 Mg Tablet) 25 mg PO Q6H PRN PRN Reason: Anxiety Magnesium Hydroxide (Milk Of Magnesia 30 Ml Oral.Susp) 30 ml PO DAILY PRN PRN Reason: Constipation Risperidone (Risperidone 3 Mg Tablet) 3 mg PO BID [facility] Last Admin: 10/28/22 08:45 Dose: 3 mg Trazodone HCl (Trazodone Hcl 50 Mg Tablet) 50 mg PO BEDTIME PRN PRN Reason: Insomnia Allergies Allergies Allergy/AdvReac Type Severity Reaction Status Date / Time Unable to Assess Allergy Verified 10/13/22 08:24 Assessment & Plan Assessment & Plan (1) Schizophrenia: Status: Acute Code(s): F20.9 - Schizophrenia, unspecified Plan Mr Wan is a 42 year-old male with what appears to be hx of schizophrenia. Pt brought [place] [facility] [place] e was found wondering and reporting hearing voices telling him that world is ending. Pt reports he is distressed by voices, which he reports affect his ability to work. At the same time, he states he will not take any psychotropic medication as he thinks these medications are harmful. He request a correction. He also reports problems with memory including difficulty retaining information getting lost, not remembering aspects of his past. He agrees to have MOCA done. PLAN 1. Admit to M3, CV, 15 minutes checks for safety. 2. Obtain collateral information 3. Aftercare planning. 10/15- start risperidone 1mg po BID. 10/16 continue treatment 10/17 increase risperidone to 2mg po BID, will add decongestant, antihistamine. 10/18 No med changes, pt is isolative 10/19 no med changes 10/20 continue current tx. 10/21 switch to prolixin 5mg po BID. d/c risperidone. 10/22 switch back to risperidone per pt request. 10/23 continue current tx. 10/24 continue risperidone 3mg po BID. 10/25 continue tx. some improvement in affect, less hypervigilant and less guar ded. 10/26 continue tx. 10/27 continue tx dc tomorrow. I spent minutes with the patient and/or on the patient floor today, greater than?50% of which was spent counseling/coordinating care. Reason for contiued inpatient stay Substantial Risk for: inability to function
[2022-10-27 20:33] VITALS: BP 124/78; PULSE 83; RESP 16; TEMP 36.6; O2SAT 99
[2022-10-28] MEDS: risperiDONE 3 MG TABLET PO (08:45)
[2022-10-28 09:35] VITALS: BP 119/71; PULSE 79; TEMP 36.6; O2SAT 98
--- NOTE | 2022-10-28 10:31 | P.DS_ITS ---
DS: Providers Provider Date of Service: 10/28/22 Date of admission: 10/13/22 21:18 Primary care physician: None Physician DS: Diagnosis Discharge Diagnosis (1) Schizophrenia: Status: Acute DS: Medications Discharge Medications Home Medications: Previous Rx's Medication Instructions Recorded risperidone 3 mg tablet 3 mg PO BID #60 tabs 10/28/22 Mental Status Exam Mental Status Exam Narrative: Appearance: casually groomed, fair hygiene, in NAD Behavior: more cooperative, less guarded Speech: clear, regular rate/rhythm, spontaneous TP: more linear TC: feeling better, still hearing voices but less distressed about them AH: telling him that the world is going to end VH: denies Delusions: less paranoia related to being possessed. Insight/judgment: poor x 2. Memory/cog: alert, oriented x 3. MOCA completed shows mostly impairments in recall, otherwise wnl. Data Imaging Diagnostic Imaging Impressions Chest X-Ray 10/13/22 10:25 IMPRESSION: No acute cardiopulmonary process. Head CT 10/13/22 10:48 IMPRESSION: 1. No acute intracranial process seen. 2. Moderate cerebral volume loss. 3. Chronic bilateral ethmoid and right frontal sinus inflammatory changes. DS: Summary Hospital Course Hospital Course: Subjective Notes: [facility] Warning (given and shows understanding) and Conditional Voluntary Narrative: Mr. Wan is a 42 year-old male with unclear psychiatric hx but appears to have hx of schizophrenia. Pt was found wondering on the streets and bystander called 911. According to crisis report, pt reported having memory problems and hearing voices telling him that the world is ending. Utox was negative. Pt recently discharged from [facility] after brief admission for psychosis, however, pt had refused medications. On the unit, pt reports he is originally from [place]. Pt reports having memory problems. He reports not remembering things about his childhood. He also reports getting lost easily and not finding his way. He reports difficulty remembering information. He states he has no family. 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 He states he can't remember how long it has been since he last worked. He reports he has no friends or anyone who can provide further information about his history. Pt reports he will not take psychotropic medications because they are drugs, not good for you. Pt states he will consider taking medication for medical reasons but also states that some medical conditions are not real. Pt states I just need help finding new custodial. He reports he has been on wait list for housing in [place] for the past 10 years. He states he has communicated with someone from [place] to obtain updates on housing status. He reports he hopes to return to [place]. He is not sure as to why he came to [place]. He denies VH. He denies SI/HI. He states I would never hurt anyone! ? Past Psychiatric History: Inpatient: [facility] OP: none Medical Evaluation Reviewed: Yes HOSPITAL COURSE On the unit, Mr. Wan was admitted on a CV and placed on 15 minutes checks for safety. Pt presented with paranoid delusions thinking that he was being possessed by spirits and at times he thought staff were also being possessed by spirits. After discussing risks, benefits and alternative treatment option, pt agreed to start risperidone, which he tolerated well and was titrated to 3mg po BID. His affect gradually presented as less guarded, less paranoid. He continued to report hearing voices telling him that end of the world was happening but he was much less guarded and suspicios. Pt reports he is originally from [place]. He reports he plans to return to [place] and is awaiting for housing to be available. He reported that he had completed application 10 years ago for housing and was getting closer to get one. He reported having memory problems and getting lost. We completed a MOCA that did not show impairments in visuo spatial nor executive function, language fluency/naming/repetition, some problem with recall and attention but orientation was also intact. Suspect some of her reports may be related to delusional content and belief rather than cognitive in nature. He denied suicidal or homicidal ideation throughout this stay. There were no incidences of disruptive behaviors nor use of restraints. We were no able to gathered any collateral information as pt reports he does not remember anyone's phone number in [place]. He asked to be referred to a custodial and stepped down to one from this unit. Status at Discharge Cognitive/behavioral status at discharge: Pt with brighter, non labile affect. No SI/HI. Residual AH telling him world will end, but much less guarded and suspicious. No signs of aggression towards self or others. He was sleeping and eating well. Functional status at discharge: independent ambulation Overall status at discharge: patient is progressing back to baseline Time Spent with Patient Time attestation: Total time spent providing and/or coordinating discharge services: Discharge Plan Discharge Anticipated Discharge Date/Time: 10/28/22 10:21 Patient Disposition: Home, Self-Care Discharge Diagnosis: schizophrenia Referrals: [facility] [Physician] - 1 Week ([facility] [address] [phone] WALK-IN IF NEEDED) Discharge Medications: New risperidone 3 mg Tablet 3 mg PO BID Qty: 60 1RF Discharge Orders: Discharge Order (Routine); Ordered 10/28/22 Ordered By: Mila Ross Diet: Regular diet Activity on Discharge: As tolerated Stand Alone Forms: Patient Portal Discharge page, Community Support Care Plan Goals: 1. Maintain mood 2. NO SI/HI 2. Less delusions, Less AH. Health Concerns: follow up with PCP Plan of Treatment: 1. Take medications as prescribed. 2. Go to ED or call 911 in event of emergency Assessment: Pt with less guarded and suspicious affect. No SI/HI. less delusional content. ongoing AH but appear less. No s/s of aggression towards self or others. Discharge Date/Time: 10/28/22 11:34
== END 2022-10-28 11:34 | disposition home or self-care (01) | DRG 885 ==
LOC: HO.ED 21:23 → HO.PADLT16 21:25
PROVIDERS: Admitting Provider Registered Nurse; Emergency Provider Physician Assistant Medical; Visit Provider Social Worker
DX: F20.9 Schizophrenia, unspecified (principal); Z20.822 Contact with and (suspected) exposure to COVID-19
CPT/HCPCS: 36415; 70450; 71046; 80053; 80061; 80307; 82077; 82140; 82607; 82746; 83735; 84439; 84443; 85025; 87635; 93005; 99284; 99285